=== PATIENT | female | born 1960 | race Caucasian/White ===

== ENCOUNTER 2016-06-29 07:46 | Outpatient (CLI) | payer OTHER | END 2016-06-29 07:47 | disposition home or self-care (01) | DX: Z00.00 Encounter for general adult medical examination without abnormal findings (principal); Z13.9 Encounter for screening, unspecified; Z79.899 Other long term (current) drug therapy ==

== ENCOUNTER 2016-07-19 14:32 | Outpatient (CLI) | payer OTHER ==
--- NOTE | 2016-07-20 09:46 | Mammography Report ---
DIGITAL BILATERAL SCREENING MAMMOGRAM: 07/19/2016 CLINICAL HISTORY: A 56-year-old female in for routine screening mammogram. The patient's family histo ry indicates an aunt at age 50 with breast cancer. The patient has bilateral breast implants. TECHNIQUE: Craniocaudad and oblique lateral views of each breast with Hologic profile digital mammogr aphy. Bilateral craniocaudad and oblique lateral Ronni views were done to complement the exam. COMPARISON: 02/09/2011, 10/22/2013. FINDINGS: Mildly heterogeneously dense breasts are noted bilaterally. Bilateral retropectoral silico ne breast prostheses are seen. No significant clusters of calcification are seen. No significant mass es are noted. No significant change is seen. IMPRESSION: THE BREAST APPEAR RADIOGRAPHICALLY BENIGN. BIRADS CATEGORY 1-NEGATIVE. RECOMMENDATION: ANNUAL BILATERAL SCREENING MAMMOGRAPHY. STANDARD QUALIFYING STATEMENTS 1. This examination was reviewed with the aid of Computer-Aided Detection (CAD). 2. A negative or benign imaging report should not delay biopsy if clinically suspicious findings are present. Consider surgical consultation if warranted. More than 5% of cancers are not identified by i mateo. 3. Dense breasts may obscure an underlying neoplasm. JOB #: [id number] EXT JOB #:[id number]
== END 2016-07-19 14:33 | disposition home or self-care (01) ==
LOC: DI 14:32
PROVIDERS: ATTEND Nurse Practitioner Primary Care
DX: Z12.31 Encounter for screening mammogram for malignant neoplasm of breast (principal); Z98.82 Breast implant status
CPT/HCPCS: 77067

== ENCOUNTER 2017-05-14 14:47 | Emergency (ER) | payer OTHER ==
--- NOTE | 2017-05-14 16:06 | ED Physician Documentation ---
History of Present Illness - Stated complaint Stated Complaint: NECK/SHOULDER PX - Chief complaint Chief Complaint: General - History obtained from History obtained from: Patient - History of Present Illness Timing: How many days ago (3) Pain level max: 5 Pain level now: 1 Improved by: rest Worsened by: movement - Additonal information Additional information: L sided neck pain and swelling for past several days. Denies any trauma. Has not taken anything for the pain. Has been drinking alcohol today Review of Systems Constitutional: denies: Fever, Chills Ears: denies: Ear pain Nose: denies: Rhinorrhea / runny nose, Congestion Cardiac: reports: Chest pain / pressure (states had mild chest pain a few days ago, lasted for a few minutes. 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 surgery - Present Medications Home Medications: Ambulatory Orders Medication Instructions Recorded Confirmed No Known Home Medications [No 05/14/17 05/14/17 Known Home Medications] Omeprazole 20 mg PO 05/14/17 Venlafaxine [Effexor] 37.5 mg PO BID 05/14/17 05/14/17 - Allergies Allergies/Adverse Reactions: Allergies Allergy/AdvReac Type Severity Reaction Status Date / Time meperidine [From Demerol] Allergy Hives Verified 05/14/17 14:57 PD ED PE NORMAL - Vitals Vital signs reviewed: Yes - General General: Alert and oriented X 3, No acute distress - HEENT HEENT: PERRL, Moist mucous membranes - Neck Neck: Supple, no meningeal sign, Other (L sided trapezial ridge TTP and swelling. also mild TTP over the L sternoclavicular joint. No skin changes. NVI.FROM of the neck, mild pain. Normal shoulder exam. ) - Cardiac Cardiac: RRR, Strong equal pulses - Respiratory Respiratory: No respiratory distress, Clear bilaterally - Abdomen Abdomen: Soft, Non tender, Non distended - Derm Derm: Warm and dry - Neuro Neuro: Alert and oriented X 3 - Psych Psych: Normal mood, Normal affect Results - Vitals Vitals: Vital Signs - 24 hr 05/14/17 05/14/17 14:53 18:28 Temperature 36.4 C L 36.6 C Heart Rate 86 72 Respiratory 16 14 Rate Blood Pressure 128/90 H 102/68 O2 Saturation 99 98 Oxygen O2 Source Room air - Labs Labs: Laboratory Tests 05/14/17 05/14/17 16:00 16:00 WBC 5.9 RBC 4.20 Hgb 13.9 Hct 42.0 MCV 100.0 H MCH 33.0 H MCHC 33.0 RDW 13.4 Plt Count 212 MPV 8.5 Neut # 1.9 Lymph # 2.8 [place] # 0.9 Eos # 0.1 Baso # 0.1 Absolute Nucleated RBC 0.00 Nucleated RBC % 0.0 Sodium 137 Potassium 3.8 Chloride 102 Carbon Dioxide 21 Anion Gap 14.0 H BUN 7 Creatinine 0.6 Estimated GFR (MDRD) 104 Glucose 124 H Calcium 8.8 Total Bilirubin 0.3 AST 43 H ALT 36 Alkaline Phosphatase 66 Total Protein 7.5 Albumin 3.9 Globulin 3.6 Albumin/Globulin Ratio 1.1 Lipase 19 L - Rads (name of study) CT neck Radiology: Prelim report reviewed, EMP read contemporaneously, See rad report ( There is mild asymmetry of the posterior cervical spaces with the left appearing to be larger than that of the right. There is increased fat density on the left. This could potentially be secondary to positioning on this scan as the left shoulder is elevated compared to the right. However, I cannot entirely exclude the possibility of an underlying lipoma within the left posterior cervical space. Recommend correlation. 2. There is slight asymmetry of the left sternoclavicular joint compared to the right which could reflect the presence of a small effusion. Recommend correlation. 3. There is no significant cervical adenopathy within the neck by size criteria. ) PD MEDICAL DECISION MAKING - ED course Complexity details: reviewed results, re-evaluated patient, considered differential, d/w patient, d/w family ED course: Patient is a 57-year-old female who presents to the emergency department left- sided neck swelling for the past few days. Unclear etiology. Possible muscle spasm? CT reveals possible lipoma? No evidence of malignancy. We will continue supportive care and follow-up with her PCP. Patient counseled regarding signs and symptoms for which I believe and urgent re-evaluation would be necessary. Patient with good understanding of and agreement to plan and is comfortable going home at this time This document was made in part using voice recognition software. While efforts are made to proofread this document, sound alike and grammatical errors may occur. Departure - Departure Disposition: 01 Home, Self Care Clinical Impression: Neck muscle strain Qualifiers: Encounter type: initial encounter Qualified Code(s): S16.1XXA - Strain of muscle, fascia and tendon at neck level, initial encounter Condition: Good Instructions: ED Sprain Strain Neck Follow-Up: Siomara Lopez ARNP [Primary Care Provider] - Within 1 week Comments: The cause of your symptoms is unclear today. You may have a lipoma that is causing the swelling. Please follow-up with your doctor for further care. Return if you worsen Discharge Date/Time: 05/14/17 19:07
[2017-05-14 16:09] LABS: BASOPHILS # (AUTO) 0.1 10^3/uL (0.0-0.1); EOSINOPHILS # (AUTO) 0.1 10^3/uL (0.0-0.7); EOSINOPHILS % (AUTO) 2.1 %; HGB - HEMOGLOBIN 13.9 g/dL (12.0-16.0); LYMPHOCYTES # (AUTO) 2.8 10^3/uL (1.5-3.5); LYMPHOCYTES % (AUTO) 48.6 %; MEAN PLATELET VOLUME 8.5 fL (7.9-10.8); MONOCYTES # (AUTO) 0.9 10^3/uL (0.0-1.0); MONOCYTES % (AUTO) 15.1 %; NEUTROPHILS # (AUTO) 1.9 10^3/uL (1.5-6.6); NEUTROPHILS % (AUTO) 33.2 %; PLT - PLATELET COUNT 212 10^3/uL (130-450); RED CELL DISTRIBUTION WIDTH 13.4 % (12.0-15.0); WHITE BLOOD COUNT 5.9 x10^3/uL (4.8-10.8)
[2017-05-14 16:17] LABS: ALBUMIN 3.9 g/dL (3.2-5.5); ALBUMIN/GLOBULIN RATIO 1.1 (1.0-2.2); BILIRUBIN,TOTAL 0.3 mg/dL (0.2-1.0); CALCIUM 8.8 mg/dL (8.5-10.3); CREATININE 0.6 mg/dL (0.4-1.0); TOTAL PROTEIN 7.5 g/dL (6.7-8.2)
[2017-05-14] MEDS ORDERED: IOPAMIDOL-300 100 ML VIAL ONE (17:19)
[2017-05-14] MEDS ORDERED: IOPAMIDOL-300 100 ML VIAL IVP ONE (17:57)
--- NOTE | 2017-05-14 18:25 | CT Preliminary Report ---
Exam: CT NECK SOFT TISSUE W/ Impression: 1. There is mild asymmetry of the posterior cervical spaces with the left appearing to be larger than that of the right. There is increased fat density on the left are in this could potentially be secon odnavon to positioning on this scan of the left shoulder is elevated compared to the right. However, I c annot entirely exclude the possibility of an underlying lipoma within the left posterior cervical spa ce. Recommend correlation. 2. There is slight asymmetry of the left sternoclavicular joint compared to the right which could ref lect the presence of a small effusion. Recommend correlation. 3. There is no significant cervical adenopathy within the neck size criteria. SITE ID: [id number]
[2017-05-14 18:29] VITALS: BP 102/68
--- NOTE | 2017-05-14 19:44 | CT Report ---
EXAM: CT SOFT TISSUE NECK WITH CONTRAST. EXAM DATE: 05/14/2017 05:54 PM. HISTORY: Left-sided neck swelling. Small lump on clavicle starting on which has progressed. Painful. COMPARISONS: None. TECHNIQUE: Routine soft tissue neck CT protocol. Reconstructions: Coronal and sagittal. IV contrast: 80 mL Isovue 300.. In accordance with CT protocol optimization, one or more of the following dose reduction techniques w ere utilized for this exam: automated exposure control, adjustment of mA and/or KV based on patient s ize, or use of iterative reconstructive technique. FINDINGS: There is subsegmental atelectasis demonstrated within the bilateral lung apices. There is straighteni ng of the normal cervical lordosis. There are multilevel moderate degenerative changes of the mid cervical spine. There is beam-hardening artifact from the patient's dental amalgam and or dental hardware obscuring p ortions of the oropharynx, nasopharynx, oral cavity, cake icer and packer and parotid spaces, tongue and tongue base. The bilateral mastoid air cells are normally aerated. There is a small mucous retention cyst in the left maxillary sinus. The remainder of the paranasal si nuses are normally aerated. There is normal enhancement within the deep venous sinuses. The imaged portions of the brain exhibit normal cerebral volume and ventricular size. The opening of the eustachian tubes are normally aerated. The torus tubarius are symmetric. The fossa of Rosenmuller are normally aerated bilaterally. The bilateral parapharyngeal spaces exhibit normal fat densities. The right and left parotid spaces enhance symmetrically. The palatine tonsils exhibit symmetric hyper trophy. There is no significant adenopathy in the level IA leanna chain. The extrinsic and the intrinsic muscles of the tongue exhibit symmetric densities. There is no significant adenopathy within the bilateral level IB leanna chains. The lingual tonsils ex hibit mild hypertrophy partially filling the vallecula. The free and fixed margins of the epiglottis are normal in appearance. The free and fixed margins of the epiglottis are normal in appearance. The preepiglottic space and pa raglottic spaces exhibit normal fat densities. The aryepiglottic folds and pyriform sinuses are symme tric. The false and true cords are normal in appearance. The arytenoid cartilage, cricoid cartilage, and the thyroid cartilages are normal in appearance. The subglottic space is normal. The bilateral thyroid lobes enhance symmetrically. There is a subtle suggestion of mild asymmetry of the joint space surrounding the left sternoclavicul ar joint. There is questionable slight distention on the left. This could reflect a mild effusion. Re commend correlation with the patient's clinical symptoms. There appears to be elevation of the left shoulder compared to the right. There is mild asymmetry in terms of the fat density within the left posterior cervical space compared to the right. This may be secondary to the differences in positioning. However, a small underlying lipoma is not excluded. There is no significant adenopathy within the deep cervical or the spinal accessory chains. The retro pharyngeal space exhibits normal fat densities. IMPRESSION: 1. There is mild asymmetry of the posterior cervical spaces with the left appearing to be larger than that of the right. There is increased fat density on the left. This could potentially be secondary t o positioning on this scan as the left shoulder is elevated compared to the right. However, I cannot entirely exclude the possibility of an underlying lipoma within the left posterior cervical space. Re commend correlation. 2. There is slight asymmetry of the left sternoclavicular joint compared to the right which could ref lect the presence of a small effusion. Recommend correlation. 3. There is no significant cervical adenopathy within the neck by size criteria. Referring Provider Line: [phone] SITE ID: [id number]
== END 2017-05-14 19:07 | disposition home or self-care (01) ==
LOC: ED 14:47
DX: S16.1XXA Strain of muscle, fascia and tendon at neck level, initial encounter (principal); X58.XXXA Exposure to other specified factors, initial encounter; R22.1 Localized swelling, mass and lump, neck
CPT/HCPCS: 36415; 70491; 80053; 83690; 85025; 93005; 99283; Q9967

== ENCOUNTER 2017-05-18 13:45 | Outpatient (CLI) | payer OTHER ==
[2017-05-18 15:37] LABS: FOLATE 8.28 ng/mL (5.90 - >24.8)
[2017-05-18 16:11] LABS: RHEUMATOID FACTOR NEGATIVE (Negative)
[2017-05-22 13:26] LABS: ANA SCREEN POSITIVE (NEGATIVE)
== END 2017-05-18 13:46 | disposition home or self-care (01) ==
LOC: LAB 13:45
PROVIDERS: ATTEND Nurse Practitioner Primary Care
DX: D75.89 Other specified diseases of blood and blood-forming organs (principal); M25.512 Pain in left shoulder; Z79.899 Other long term (current) drug therapy
CPT/HCPCS: 81599; 82607; 82746; 85651; 86038; 86140; 86430; 86812

== ENCOUNTER 2017-07-19 09:04 | Outpatient (CLI) | payer OTHER ==
[2017-07-19 09:24] LABS: BASOPHILS % (AUTO) 0.8 %; EOSINOPHILS # (AUTO) 0.1 10^3/uL (0.0-0.7); HGB - HEMOGLOBIN 14.5 g/dL (12.0-16.0); LYMPHOCYTES # (AUTO) 1.7 10^3/uL (1.5-3.5); MEAN CORPUSCULAR HEMOGLOBIN 34.2 pg (27.0-31.0); MEAN CORPUSCULAR HGB CONC 33.9 g/dL (32.0-36.0); MEAN PLATELET VOLUME 8.6 fL (7.9-10.8); MONOCYTES # (AUTO) 0.8 10^3/uL (0.0-1.0); MONOCYTES % (AUTO) 16.8 %; NEUTROPHILS # (AUTO) 2.3 10^3/uL (1.5-6.6); NEUTROPHILS % (AUTO) 45.4 %; PLT - PLATELET COUNT 176 10^3/uL (130-450); RED BLOOD COUNT 4.24 10^6/uL (4.20-5.40); RED CELL DISTRIBUTION WIDTH 13.3 % (12.0-15.0)
[2017-07-19 09:42] LABS: ALBUMIN 3.9 g/dL (3.2-5.5); ALBUMIN/GLOBULIN RATIO 1.1 (1.0-2.2); ALKALINE PHOSPHATASE 65 IU/L (42-121); ALT ALANINE AMINOTRANSFERASE 55 IU/L (10-60); AST ASPARTATE AMINOTRANSFERASE 62 IU/L (10-42); BUN - BLOOD UREA NITROGEN 8 mg/dL (6-20); CALCIUM 8.8 mg/dL (8.5-10.3); CARBON DIOXIDE - CO2 28 mmol/L (21-32); CHLORIDE 101 mmol/L (101-111); CHOL/HDL RATIO 3.5 (<4.4); CHOLESTEROL 243 mg/dL; CREATININE 0.6 mg/dL (0.4-1.0); GFR - MDRD 104 (>89); GLUCOSE 94 mg/dL (70-100); HDL CHOLESTEROL 69 mg/dL; LDL CHOLESTEROL,CALCULATED 142 mg/dL; LDL/HDL RATIO 2.1 (<4.4); SODIUM 139 mmol/L (135-145); TOTAL PROTEIN 7.3 g/dL (6.7-8.2); VLDL CHOLESTEROL 32 mg/dL
== END 2017-07-19 09:05 | disposition home or self-care (01) ==
LOC: LAB 09:04
PROVIDERS: ATTEND Nurse Practitioner Primary Care
DX: E55.9 Vitamin D deficiency, unspecified (principal); D75.89 Other specified diseases of blood and blood-forming organs; E03.9 Hypothyroidism, unspecified; E78.5 Hyperlipidemia, unspecified; K21.9 Gastro-esophageal reflux disease without esophagitis; Z79.899 Other long term (current) drug therapy
CPT/HCPCS: 36415; 80053; 80061; 82306; 83721; 84443; 85025

== ENCOUNTER 2017-12-29 01:39 | Emergency (ER) | payer OTHER ==
[2017-12-29] MEDS ORDERED: SODIUM CHLORIDE 0.9% 1,000 ML IV ONE (01:45)
[2017-12-29] MEDS ORDERED: ADENOSINE 6 MG/2 ML VIAL IVP STA (01:46)
--- NOTE | 2017-12-29 01:55 | ED Physician Documentation ---
PD HPI CHEST PAIN - Stated complaint Stated Complaint: CHEST PX - Chief complaint Chief Complaint: Cardiac - History obtained from History obtained from: Patient, Family - History of Present Illness Timing - onset: Today Timing - onset during: Rest Timing - duration: Minutes Timing - details: Abrupt onset, Still present Quality: Pressure, Tightness, Sharp Location: Substernal, Left chest Radiation: Jaw, Neck Improved by: Rest Worsened by: Exertion Associated symptoms: Shortness of air Similar symptoms before: Diagnosis (SVT) Recently seen: Not recently seen - Additional information Additional information: 57-year-old female was well previously and she admits to having some wine t onight and smoking a cigarette and this evening she was in bed and developed a rapid heart rate. She states that she can feel pressure in her chest and she has had something similar to this previously which resolved with a Valsalva maneuver. She had not sought care at that time. She has persistence of symptoms that did not resolve with Valsalva and she is here in the emergency department for evaluation. She does have pain in her chest it is radiating into her neck and jaw. 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 Cardiovascular: Vascular surgery - Present Medications Home Medications: Ambulatory Orders Medication Instructions Recorded Confirmed No Known Home Medications 05/14/17 05/14/17 RX: Omeprazole 20 mg PO 05/14/17 Venlafaxine [Effexor] 37.5 mg PO BID 05/14/17 05/14/17 - Allergies Allergies/Adverse Reactions: Allergies Allergy/AdvReac Type Severity Reaction Status Date / Time meperidine [From Demerol] Allergy Hives Verified 05/14/17 14:57 - Social History Does the pt smoke?: No Smoking Status: Never smoker Does the pt drink ETOH?: Yes Does the pt have substance abuse?: No PD ED PE NORMAL - Vitals Vital signs reviewed: Yes (tachy and hypertensive ) - General General: Alert and oriented X 3, Well developed/nourished, Other (appears anxious ) - HEENT HEENT: Atraumatic, PERRL, EOMI, Other (injection of the sclera on the right ) - Neck Neck: Supple, no meningeal sign, No bony TTP - Cardiac Cardiac: No murmur, Other (tachy greater than 200) - Respiratory Respiratory: No respiratory distress, Clear bilaterally - Abdomen Abdomen: Soft, Non tender - Back Back: No CVA TTP, No spinal TTP - Derm Derm: Normal color, Warm and dry, No rash - Extremities Extremities: No deformity, No edema - Neuro Neuro: Alert and oriented X 3, director cost 2-12 intact, No motor deficit, No sensory deficit, Normal speech Eye Opening: Spontaneous Motor: Obeys Commands Verbal: Oriented GCS Score: 15 - Psych Psych: Normal mood, Normal affect Results - Vitals Vitals: Vital Signs - 24 hr 12/29/17 12/29/17 12/29/17 01:43 01:49 01:51 Temperature 35.9 C L Heart Rate 222 H 224 H 111 H Respiratory 19 14 Rate Blood Pressure 124/108 H 147/98 H O2 Saturation 100 98 12/29/17 12/29/17 12/29/17 01:55 02:23 03:33 Temperature Heart Rate 87 87 84 Respiratory 24 20 14 Rate Blood Pressure 116/89 H 125/84 H 104/73 O2 Saturation 97 98 98 Oxygen O2 Source Room air - EKG (time done) 0147 Rate: Rate (enter#) (214) Rhythm: SVT [place]: LAD Ischemia: ST elevation c/w ischemia (V1 and V2), ST depression (lateral rate dependant ), Q waves, Other Compare to prior EKG: Changed from prior EKG (SPT 05-14-17 rhythm has changed to SVT and ST-T abnormalities are presnent. ) Computer interpretation: Agree with computer 0154 Rate: Rate (enter#) (91) Rhythm: NSR, LAE Ischemia: Q waves Compare to prior EKG: Changed from prior EKG (SPT minutes ago the rhythm has changed to normal sinus and the ST-T abnormalities have resolved. ) Computer interpretation: Agree with computer - Labs Labs: Laboratory Tests 12/29/17 12/29/17 12/29/17 01:45 01:45 01:45 WBC 10.5 RBC 4.33 Hgb 14.9 Hct 43.7 MCV 101.0 H MCH 34.3 H MCHC 34.0 RDW 13.1 Plt Count 225 MPV 9.5 Neut # (Auto) 4.1 Lymph # (Auto) 4.7 H [place] # (Auto) 1.3 H Eos # (Auto) 0.3 Baso # (Auto) 0.1 Absolute Nucleated RBC 0.01 Nucleated RBC % 0.1 Sodium 136 Potassium 3.6 Chloride 103 Carbon Dioxide 22 Anion Gap 11.0 BUN 19 Creatinine 0.7 Estimated GFR (MDRD) 87 L Glucose 111 H Calcium 9.0 Total Bilirubin 0.8 AST 69 H ALT 48 Alkaline Phosphatase 63 Troponin I < 0.04 Total Protein 7.4 Albumin 4.3 Globulin 3.1 Albumin/Globulin Ratio 1.4 Lipase 37 TSH Urine Color Urine Clarity Urine pH Ur Specific [place] Urine Protein Urine Glucose (UA) Urine Ketones Urine Occult Blood Urine Nitrite Urine Bilirubin Urine Urobilinogen Ur Leukocyte Esterase Ur Microscopic Review Urine Culture Comments Urine Opiates Screen Ur Oxycodone Screen Urine Methadone Screen Ur Propoxyphene Screen Ur Barbiturates Screen Ur Tricyclics Screen Ur Phencyclidine Scrn Ur Amphetamine Screen U Methamphetamines Scrn U Benzodiazepines Scrn Urine Cocaine Screen U Cannabinoids Screen Ethyl Alcohol 116.0 12/29/17 12/29/17 12/29/17 01:45 02:49 02:49 WBC RBC Hgb Hct MCV MCH MCHC RDW Plt Count MPV Neut # (Auto) Lymph # (Auto) [place] # (Auto) Eos # (Auto) Baso # (Auto) Absolute Nucleated RBC Nucleated RBC % Sodium Potassium Chloride Carbon Dioxide Anion Gap BUN Creatinine Estimated GFR (MDRD) Glucose Calcium Total Bilirubin AST ALT Alkaline Phosphatase Troponin I Total Protein Albumin Globulin Albumin/Globulin Ratio Lipase TSH 6.97 H Urine Color YELLOW Urine Clarity CLEAR Urine pH 6.0 Ur Specific [place] 1.020 Urine Protein NEGATIVE Urine Glucose (UA) NEGATIVE Urine Ketones TRACE Urine Occult Blood NEGATIVE Urine Nitrite NEGATIVE Urine Bilirubin NEGATIVE Urine Urobilinogen 0.2 (NORMAL) Ur Leukocyte Esterase NEGATIVE Ur Microscopic Review NOT INDICATED Urine Culture Comments NOT INDICATED Urine Opiates Screen NEGATIVE Ur Oxycodone Screen NEGATIVE Urine Methadone Screen NEGATIVE Ur Propoxyphene Screen NEGATIVE Ur Barbiturates Screen NEGATIVE Ur Tricyclics Screen NEGATIVE Ur Phencyclidine Scrn NEGATIVE Ur Amphetamine Screen NEGATIVE U Methamphetamines Scrn NEGATIVE U Benzodiazepines Scrn NEGATIVE Urine Cocaine Screen NEGATIVE U Cannabinoids Screen NEGATIVE Ethyl Alcohol PD MEDICAL DECISION MAKING - ED course Complexity details: reviewed old records, reviewed results, re-evaluated patient, considered differential, d/w patient, d/w family ED course: Previously well 57-year-old female has the acute onset of SVT this evening with a very high rate of 220. She is anxious with this and she has prompt resolution of her symptoms with administration of 6 mg of adenosine intravenously. She returns to a normal sinus rhythm and remainder of her workup is unremarkable. She has had workup to include stress echo about 4 years ago. She will need out patient follow up. This was a dramatic episode with a very high heart rate that she tolerated for almost an hour. Departure - Departure Disposition: 01 Home, Self Care Clinical Impression: SVT (supraventricular tachycardia) Instructions: ED Tachycardia Pat PSVT Follow-Up: Iriwn Griffin MD [Provider Admit Priv/Credential] - Discharge Date/Time: 12/29/17 03:40
[2017-12-29 02:00] LABS: BASOPHILS # (AUTO) 0.1 10^3/uL (0.0-0.1); BASOPHILS % (AUTO) 0.9 %; EOSINOPHILS # (AUTO) 0.3 10^3/uL (0.0-0.7); EOSINOPHILS % (AUTO) 2.8 %; HGB - HEMOGLOBIN 14.9 g/dL (12.0-16.0); LYMPHOCYTES # (AUTO) 4.7 10^3/uL (1.5-3.5); LYMPHOCYTES % (AUTO) 44.9 %; MEAN CORPUSCULAR HEMOGLOBIN 34.3 pg (27.0-31.0); MEAN PLATELET VOLUME 9.5 fL (7.9-10.8); MONOCYTES # (AUTO) 1.3 10^3/uL (0.0-1.0); MONOCYTES % (AUTO) 12.3 %; NEUTROPHILS # (AUTO) 4.1 10^3/uL (1.5-6.6); NEUTROPHILS % (AUTO) 39.1 %; PLT - PLATELET COUNT 225 10^3/uL (130-450); RED BLOOD COUNT 4.33 10^6/uL (4.20-5.40); RED CELL DISTRIBUTION WIDTH 13.1 % (12.0-15.0); WHITE BLOOD COUNT 10.5 x10^3/uL (4.8-10.8)
[2017-12-29 02:10] LABS: ALBUMIN 4.3 g/dL (3.2-5.5); ALBUMIN/GLOBULIN RATIO 1.4 (1.0-2.2); BILIRUBIN,TOTAL 0.8 mg/dL (0.2-1.0); CREATININE 0.7 mg/dL (0.4-1.0); TOTAL PROTEIN 7.4 g/dL (6.7-8.2)
[2017-12-29 02:55] LABS: MUDS CUTOFF CONCENTRATIONS CUTOFF CONC BELOW:
[2017-12-29 03:02] LABS: BILIRUBIN,URINE NEGATIVE (NEGATIVE); GLUCOSE, URINE (UA) NEGATIVE (NEGATIVE); KETONES,URINE (UA) TRACE mg/dL (NEGATIVE); LEUKOCYTE ESTERASE, URINE NEGATIVE (NEGATIVE); NITRITE,URINE NEGATIVE (NEGATIVE); OCCULT BLOOD,URINE NEGATIVE (NEGATIVE); PROTEIN,URINE NEGATIVE (NEGATIVE); UROBILINOGEN,URINE 0.2 (NORMAL) E.U./dL (NORMAL)
[2017-12-29 03:05] LABS: CLARITY,URINE CLEAR (CLEAR)
[2017-12-29 03:12] LABS: AMPHETAMINE SCREEN,URINE NEGATIVE (NEGATIVE); BENZODIAZEPINES SCREEN, URINE NEGATIVE (NEGATIVE); COCAINE SCREEN URINE NEGATIVE (NEGATIVE); METHADONE SCREEN, URINE NEGATIVE (NEGATIVE); METHAMPHETAMINES SCREEN, URINE NEGATIVE (NEGATIVE); OPIATE SCREEN, URINE NEGATIVE (NEGATIVE); OXYCODONE SCREEN, URINE NEGATIVE (NEGATIVE); PROPOXYPHENE SCREEN, URINE NEGATIVE (NEGATIVE); TRICYCLIC ANTIDEPRESSANT,URINE NEGATIVE (NEGATIVE)
[2017-12-29 03:34] VITALS: BP 104/73
== END 2017-12-29 03:40 | disposition home or self-care (01) ==
LOC: ED 01:39
DX: I47.1 Supraventricular tachycardia (principal); F41.9 Anxiety disorder, unspecified
CPT/HCPCS: 36415; 80053; 80306; 80320; 81003; 83690; 84443; 84484; 85025; 93005; 96374; 99284; 99285; J0153; 81001; 87086

== ENCOUNTER 2018-12-21 14:50 | Outpatient (CLI) | payer BC, OTHER ==
--- NOTE | 2018-12-24 11:40 | Mammography Report ---
Reason: ROUTINE MAMMO Procedure Date: 12/21/2018 Accession Number: [id number] / [id number] Procedure: LINDA - Screening Mammo Impl w/Ted CPT Code: FULL RESULT: EXAM: Screening Mammo Impl w/Ted DATE: 12/21/2018 3:31 PM CLINICAL HISTORY: Routine screening, breast implants. TECHNIQUE: (B) - Bilateral CC and MLO views were obtained. COMPARISON: 07/19/2016, 10/22/2013, 02/09/2011 PARENCHYMAL PATTERN: (D) - The breasts demonstrate heterogeneously dense fibroglandular parenchyma bilaterally. FINDINGS: No significant interval change..There are no suspicious masses, calcifications, or areas of distortion. Bilateral implants as before. There is a focal area of tissue asymmetry in the anterior upper outer left breast which is been previously present but not evaluated. IMPRESSION: Incomplete examination. BI-RADS category 0. Needs additional evaluation left breast by ultrasound. Negative right breast. RECOMMENDATION: (ADDUS) - Targeted ultrasound recommended. Left breast BI-RADS CATEGORY: (0) - Incomplete Examination - need additional evaluation. STANDARD QUALIFYING STATEMENTS: 1. This examination was not reviewed with the aid of Computer-Aided Detection (CAD). 2. A negative or benign imaging report should not preclude biopsy if clinically suspicious findings are present. 3. Dense breasts may obscure an underlying neoplasm. 4. This examination was reviewed with the aid of 3D breast imaging (tomosynthesis).
== END 2018-12-21 14:51 | disposition home or self-care (01) ==
LOC: DI 14:50
DX: Z12.31 Encounter for screening mammogram for malignant neoplasm of breast (principal); Z98.82 Breast implant status
CPT/HCPCS: 77063; 77067

== ENCOUNTER 2019-01-04 15:12 | Outpatient (CLI) | payer BC ==
--- NOTE | 2019-01-04 16:19 | Ultrasound Report ---
Reason: ABN MAMMO - LT SPEC VIEWS US Procedure Date: 01/04/2019 Accession Number: [id number] / [id number] Procedure: US - Breast Unilateral Limited CPT Code: Final Report FULL RESULT: EXAM: Breast Unilateral Limited DATE: 01/04/2019 4:04 PM CLINICAL HISTORY: ABN MAMMO - LT SPEC VIEWS US COMPARISON: Screening mammogram 12/21/2018 through 02/09/2011. TECHNIQUE: Targeted ultrasound was performed of the left breast in the area of clinical concern at 3 o'clock and 4 cm distance from the nipple. Color Doppler was employed as appropriate. FINDINGS: A wider than tall 0.4 x 0.1 cm simple appearing cyst with well defined borders, anechoic lumen and increased through transmission is identified corresponding and shape but not confidently in size to the mammographic changing which appears to demonstrate long-term mammographic stability. No suspicious mass is identified. IMPRESSION: Benign findings RECOMMENDATION: Recommend routine annual Screening mammography unless otherwise clinically indicated. BIRADS CATEGORY 2: Benign findings RADIA
== END 2019-01-04 15:13 | disposition home or self-care (01) ==
LOC: DI 15:12
PROVIDERS: ATTEND Nurse Practitioner
DX: R92.8 Other abnormal and inconclusive findings on diagnostic imaging of breast (principal)
CPT/HCPCS: 76642

== ENCOUNTER 2019-09-17 13:22 | Outpatient (CLI) | payer BC ==
--- NOTE | 2019-09-17 13:59 | SLEEP CARE CONSULTATION ---
Information from patient questionnaire entered by Qi Joe. I have reviewed and concur with the information entered by Qi Joe. This document represents the service I personally performed and the decisions made by me, Michelet Colon MD, [facility]. History of Present Illness Service Date and Time: 09/17/2019 1322 Reason for Visit: New patient Chief Complaint: reports: Snoring, Observed pauses in breathing Duration of Symptoms: 2-4 YEARS Usual bedtime: 2200 Time it takes to fall asleep: erratic Snores at night: Yes Observed to quit breathing while asleep: Yes Sleeps alone due to snoring: No Number of times waking at night: 2-3 Reasons for waking at night: reports: Gasping for air, Bathroom Toss, Turn, or Twitch while sleeping: Yes Recalls having dreams: Yes Usually gets out of bed at: 0700 Feels refreshed in the morning: No Morning headache: No Sleepy or fatigued during the day: Yes Ever fallen asleep while driving: No Takes day naps: Yes Dreams during day naps: No Prior sleep studies: No Additional HPI information: I had the pleasure of seeing Ms. Georges today regarding the possibility of her having a sleep disorder. As you know, she is a 59 year old lady who complains of loud snore, observed apneas, frequent awakenings, and persistent fatigue. She has woken up because of her own snore. She is very familiar with the sleep- disordered breathing because her has obstructive sleep apnea-hypopnea and uses a CPAP. 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 Patient is and lives in [place]. Have you smoked in the past 12 months: Yes Cigarettes per day (20/pack): 2 Years of smokin Quit date: 2018 Smoking Pack Years: 2.0 Alcohol use: Yes Alcohol amount and frequency: 2 drinks nightly Caffeine use: Yes Caffeine amount and frequency: 2-3 Family History Family history of sleep disordered breathing: Yes Family Hx Sleep Apnea: Father: Snoring Allergies and Home Medications Drug allergies reviewed: Yes Home medication list reviewed: Yes (propanolol, Prilosec, melatonin) Review of Systems Weight gain over past 5 years: 20 Cardiovascular: reports: palpitations, irregular heart rate or pulse Gastrointestinal: reports: heartburn Urinary: reports: frequency, urgency Neurological: denies: headaches, seizure, head trauma, disorientation, speech dysfunction, gait or balance problems, fainting or unconsciousness, other Psychiatric: reports: anxiety Ear/Nose/Throat: reports: wisdom teeth removed Endocrine: reports: thyroid disease, too hot or cold, increased urination Musculoskeletal: reports: joint pain, back pain Immunologic: reports: allergies to food or environment Physical Exam Vital signs obtained and entered by: Detailed physical exam was not performed to comply with the COVID-19 precau Height: 5 ft 0.5 in Weight: 155 lb Body Mass Index: 29.7 BMI Classification: Overweight Impression and Plan IMPRESSION: 1. Obstructive Sleep Apnea-Hypopnea Syndrome, as suggested by history of loud and irregular snoring, observed cessation of breath while asleep, frequent awakenings during the night, unrefreshed sleep, nocturnal choking, and persistent fatigue. Narrow oropharynx and obesity are common predisposing factors for obstructive sleep apnea-hypopnea syndrome. Pathophysiology of sleep-disordered breathing was discussed. I recommend proceeding to polysomnography to confirm the diagnosis and to assess severity. If she has significant sleep disordered breathing, a manual CPAP titration study will also be performed to find the optimal treatment pressure. I informed the patient of what the sleep studies involve and after some discussion, she agreed to proceed. Plan: 1. Schedule an in-laboratory polysomnography, home sleep apnea test (HSAT) if it is the only test approved by her insurance. 2. Avoid long distance driving or when feeling sleepy. 3. Avoid alcohol, sedative and muscle relaxant around bedtime. 4. Attempt to lose weight. 5. Return in 1 to 2 weeks after the study to discuss results and initiate therapy. Visit Type: In Office Time Spent with Patient (minutes): 15 Provider Statement: I spent 100% of the Face to Face Visit with the patient with greater than 50% spent counseling the patient and coordination of care.
== END 2019-09-17 13:23 | disposition home or self-care (01) ==
LOC: SC 13:22
PROVIDERS: ATTEND Internal Medicine Pulmonary Disease
DX: R53.83 Other fatigue (principal); G47.8 Other sleep disorders; R06.83 Snoring; R06.81 Apnea, not elsewhere classified; E66.3 Overweight; Z68.29 Body mass index [BMI] 29.0-29.9, adult
CPT/HCPCS: 99203; 99212

== ENCOUNTER 2019-10-21 20:29 | Outpatient (CLI) | payer BC | END 2019-10-21 20:30 | disposition home or self-care (01) | LOC: SC 20:29 | PROVIDERS: ATTEND Internal Medicine Pulmonary Disease | DX: G47.33 Obstructive sleep apnea (adult) (pediatric) (principal); G47.61 Periodic limb movement disorder; E66.3 Overweight; Z68.29 Body mass index [BMI] 29.0-29.9, adult | CPT/HCPCS: 95810 ==

== ENCOUNTER 2019-11-05 08:10 | Outpatient (CLI) | payer BC ==
--- NOTE | 2019-11-05 08:43 | SLEEP CARE CONSULTATION ---
Information from patient questionnaire entered by Qi Joe. I have reviewed and concur with the information entered by Qi Joe. This document represents the service I personally performed and the decisions made by me, Kandi Avila ARNP. History of Present Illness Service Date and Time: 11/05/2019 0810 Initial [place] Sleepiness Scale score: 6 Additional HPI information: CRISTIANO VAUGHAN returns for follow up and results of the recently performed p olysomnography. She was found to have mild sleep apnea with an average AHI of 12.5 and a alyce of 77%. She was also found to have severe periodic leg movement. I explained the pathophysiology behind obstructive sleep apnea. We then spent quite a bit of time discussing different treatment options. For mild obstructive sleep apnea, surgery and oral appliance are alternatives to nasal CPAP therapy but in moderate or severe cases, nasal CPAP is the most effective and reliable treatment. Because apnea is primarily in supine position, then positional management therapy could be effective. Methods discussed such as positioning with pillows, using a T-shirt with tennis balls in the back, and shown commercial products that have a pillow format on back to prevent supine sleep. I reviewed the impact of weight changes on sleep apnea and strongly recommended losing weight. After some discussion, the patient opted to go with the nasal CPAP therapy. Nasal autoCPAP set at 4-15 cmH20 will be ordered with rationale explained. A manual titration study will be ordered if unable to find optimal pressure with office adjustments. I explained how CPAP machine works with sample devices Respironics Dreamstation and ResSTEERads [id number] and what to expect when using the machine. Using CPAP every night in order to get used to it was emphasized. Patient advised to put CPAP mask on before getting into bed so as not to fall asleep without CPAP. To assist acclimation to CPAP use, it could also be used for a short time during day while reading or watching TV. The patient was instructed to call the CPAP supplier to discuss any mechanical problem that may occur. If the mask given is uncomfortable or is difficult to keep on through the night even with adjustment, contact the CPAP supplier as many will replace with another mask style if notified before 30 days. If snoring or perceives is not getting enough air or too much air from the machine, notify this office. AAS patient education PAP tips reviewed and given to patient. Patient counseled not drink alcohol less than 4 hours before bedtime as it can increase snoring and apnea. Patient was cautioned about risks of drowsy driving until sleepiness symptoms resolve. Sleep Study - Results Type of Sleep Study: Polysomnography Year and Where: 09/2019 [facility] Polysomnography/Home Sleep Study results: IMPRESSION: The quality of the study is good. The patient had normal sleep efficiency. Despite moderate sleep fragmentation, the sleep architecture was normal as well. Respiratory monitoring showed mild obstructive sleep apnea-hypopnea (AHI = 12.5) associated with frequent arousals, oxyhemoglobin desaturation and moderate hypoxia (alyce oxygen saturation of 77%). Baseline oxygen saturation was normal. The respiratory events occurred mainly during supine sleep (supine AHI = 31.2; non-supine = 7.60). Snore was loud in intensity. There was severe periodic leg movement of sleep contributing to the sleep fragmentation. Cardiac rhythm was normal sinus rhythm without significant arrhythmia. No abnormal behavior (parasomnia) observed during the night. Allergies and Home Medications Drug allergies reviewed: Yes (meperidine) Home medication list reviewed: Yes (losartan, propanalol) Review of Systems Review of systems same as previous: Yes (no changes) Physical Exam Heart Rate: 58 O2 Saturation: 99 Height: 5 ft 0.5 in Weight: 157 lb Body Mass Index: 30.1 BMI Classification: Obese Impression and Plan 1. Obstructive Sleep Apnea-Hypopnea Syndrome, mild, with lowest oxygen saturation of 77%. Obviously this is the cause of the patients symptoms of unrefreshed sleep, and excessive daytime sleepiness. Positive pressure therapy could benefit her anxiety and GERD. As mentioned above, the patient will be started on nasal autoCPAP therapy with pressure set at 4-15 cmH2O. A manual titration study will be completed if unable to find optimal treatment pressure with office adjustments. Compliance guidelines also reviewed. A copy of compliance guidelines will be given for reference at check out. Because the apnea is more severe supine, I instructed to avoid sleeping supine using pillow positioning until able to start CPAP use. 2. Periodic limb movement, severe, that did fragment patients sleep. Periodic limb movement of sleep (PLMS) is characterized by episodes of repetitive limb movements that occur during sleep and usually involve the lower limbs. The etiology is unknown but can be associated with restless leg syndrome (RLS), neuropathy, spinal cord diseases, kidney disease, rheumatological disorders, narcolepsy, obstructive sleep apnea, and REM sleep behavior disorder. Other factors that can increase PLMS and/or RLS are heredity and iron deficiency as reflected by a low serum ferritin level below 50 to 75mcg / L. Several medications can precipitate or aggravate PLMS such as selective serotonin re- uptake inhibitor antidepressants, tricyclic antidepressants, lithium, and dopamine receptor antagonists with the exception of bupropion. Caffeine can also aggravate PLMS and should be avoided. Sleep hygiene methods can also improve sleep as well as lifestyle changes such as regular exercise. Patient was advised that no treatment is needed at this time. If symptoms increase, then further evaluation is indicated. * Nasal auto CPAP therapy, pressure at 4-15 cm H2O. * Attempt to lose weight. * Avoid alcohol consumption near bedtime. * Avoid supine sleep until using CPAP. * The patient is again cautioned about driving until sleepiness completely resolves. * Return one month after CPAP obtained. I will assess response to therapy and compliance at that time. Visit Type: In Office Time Spent with Patient (minutes): 19 Provider Statement: I spent 100% of the Face to Face Visit with the patient with greater than 50% spent counseling the patient and coordination of care.
== END 2019-11-05 08:11 | disposition home or self-care (01) ==
LOC: SC 08:10
PROVIDERS: ATTEND Nurse Practitioner Family
DX: G47.33 Obstructive sleep apnea (adult) (pediatric) (principal); G47.61 Periodic limb movement disorder; E66.9 Obesity, unspecified; Z68.30 Body mass index [BMI] 30.0-30.9, adult
CPT/HCPCS: 99212; 99213

== ENCOUNTER 2019-12-27 09:39 | Outpatient (CLI) | payer BC ==
--- NOTE | 2019-12-27 10:08 | SLEEP CARE CONSULTATION ---
Information from patient questionnaire entered by Pamela Salamanca. I have reviewed and concur with the information entered by Pamela Salamanca. This document represents the service I personally performed and the decisions made by me, Kandi Avila ARNP. History of Present Illness Service Date and Time: 12/27/2019 09 Previous diagnosis: Mild, Obstructive Sleep Apnea-Hypopnea Syndrome AHI: 12.5 (in 2019) Reason for follow up: first compliance Equipment type: CPAP Equipment obtained from: Other ([facility], getting supplies as needed) Mask style: Nasal Mask brand: Respironics Backup mask available: Yes (other mask) Last cushion change: 1 week ago Prior sleep studies: Yes Year and Where: 2019 - [facility] Sleep HPI additional information: CRISTIANO VAUGHAN was diagnosed to have mild, AHI 12.5, obstructive sleep apnea- hypopnea syndrome and returned today for CPAP therapy first compliance follow- up. CPAP Compliance Data - Data Reviewed with Patient Average duration of nightly device use: 5.5 Compliance rate %: 76.7 Current pressure setting (cmH2O): 4-15 Humidity settin Heated hose settin Average residual AHI: 4.8 Average large leak: 4 min 44 sec Subjective Patient concerns: reports: other (just getting used to wearing the mask). denies: aerophagia, mask discomfort, air blowing in eyes, mask leak noise, condensation in mask/hose, nasal congestion, dry mouth, nose, throat, epistaxis Observed to snore while using device: No Current pressure setting perceived as: comfortable (sometimes to little to low at start of night, a couple breaths helps) On therapy, patient: reports: sleeping better, awakening more refreshed, being more awake and alert during the day, more rested overall. denies: drowsiness while driving Initial [place] Sleepiness Scale score: 6 (in 2020) Current [place] Sleepiness Scale score: 6 Allergies and Home Medications Drug allergies reviewed: Yes (meperidine) Home medication list reviewed: Yes (Losartan) Review of Systems Review of systems same as previous: Yes (no changes) Physical Exam Heart Rate: 61 O2 Saturation: 100 Height: 5 ft 0.5 in Weight: 157 lb Body Mass Index: 30.1 BMI Classification: Obese Impression and Plan 1. Obstructive Sleep Apnea-Hypopnea Syndrome, mild, with fair treatment compliance and fair apnea control. On CPAP therapy, the patient has better sleep quality and is more rested overall. She is doing well. She states she is sometimes waking up with the mask off, but she replaces it and is able to sleep. She sometimes feels the pressure is a little low at the beginning of the night but taking a couple of deep breaths seem to help. I will increase her pressure to 8-12 cm H2O and have her follow up in the office in 1-2 months to evaluate her progress. Patient's apnea severity and rationale for treatment to reduce apnea, improve sleep quality and reduce cardiovascular and cerebrovascular events was reviewed. I also reviewed the benefit of consistent device use of CPAP for her gastric reflux andanxiety. * Changeauto CPAP pressure to 8-12 cmH2O * Notify me if snoring with mask or feeling that the pressure is too much or too little * Attempt to lose weight * Call this office if any problems using CPAP * Return for follow up in 1-2 months, or sooner if concerns arise Time Spent with Patient (minutes): 19
== END 2019-12-27 09:40 | disposition home or self-care (01) ==
LOC: SC 09:39
PROVIDERS: ATTEND Nurse Practitioner Family
DX: G47.33 Obstructive sleep apnea (adult) (pediatric) (principal); E66.9 Obesity, unspecified; Z68.30 Body mass index [BMI] 30.0-30.9, adult
CPT/HCPCS: 99212

== ENCOUNTER 2020-01-20 08:58 | Outpatient (CLI) | payer BC ==
[2020-01-20 11:37] LABS: BASOPHILS # (AUTO) 0.1 10^3/uL (0.0-0.1); BASOPHILS % (AUTO) 0.9 %; EOSINOPHILS # (AUTO) 0.2 10^3/uL (0.0-0.7); EOSINOPHILS % (AUTO) 2.6 %; HGB - HEMOGLOBIN 12.6 g/dL (12.0-16.0); LYMPHOCYTES # (AUTO) 1.6 10^3/uL (1.5-3.5); LYMPHOCYTES % (AUTO) 24.9 %; MEAN CORPUSCULAR HEMOGLOBIN 34.2 pg (27.0-31.0); MEAN CORPUSCULAR HGB CONC 32.4 g/dL (32.0-36.0); MEAN CORPUSCULAR VOLUME 105.7 fL (81.0-99.0); MONOCYTES # (AUTO) 1.2 10^3/uL (0.0-1.0); NEUTROPHILS # (AUTO) 3.4 10^3/uL (1.5-6.6); NEUTROPHILS % (AUTO) 52.3 %; PLT - PLATELET COUNT 211 10^3/uL (130-450); RED BLOOD COUNT 3.68 10^6/uL (4.20-5.40); RED CELL DISTRIBUTION WIDTH 12.2 % (12.0-15.0); WHITE BLOOD COUNT 6.4 x10^3/uL (4.8-10.8)
[2020-01-20 12:23] LABS: THYROID STIMULATING HORMONE 5.21 uIU/mL (0.34-5.60)
[2020-01-20 12:25] LABS: FREE T3 3.73 pg/mL (2.5-3.9); FREE T4 (FREE THYROXINE) 0.81 ng/dL (0.58-1.64)
[2020-01-20 12:28] LABS: ALBUMIN 3.7 g/dL (3.2-5.5); ALBUMIN/GLOBULIN RATIO 1.1 (1.0-2.2); ALKALINE PHOSPHATASE 64 IU/L (42-121); ALT ALANINE AMINOTRANSFERASE 62 IU/L (10-60); AST ASPARTATE AMINOTRANSFERASE 57 IU/L (10-42); BILIRUBIN,TOTAL 0.8 mg/dL (0.2-1.0); BUN - BLOOD UREA NITROGEN 10 mg/dL (6-20); CALCIUM 8.9 mg/dL (8.5-10.3); CARBON DIOXIDE - CO2 25 mmol/L (21-32); CHLORIDE 104 mmol/L (101-111); CHOL/HDL RATIO 5.2 (<4.4); CHOLESTEROL 206 mg/dL; CREATININE 0.6 mg/dL (0.4-1.0); GLUCOSE 114 mg/dL (70-100); HDL CHOLESTEROL 40 mg/dL; LDL CHOLESTEROL,CALCULATED 150 mg/dL; LDL/HDL RATIO 3.8 (<4.4); SODIUM 138 mmol/L (135-145); TOTAL PROTEIN 7.2 g/dL (6.7-8.2); VLDL CHOLESTEROL 16 mg/dL
== END 2020-01-20 23:59 | disposition home or self-care (01) ==
LOC: LAB.WCP 08:58
PROVIDERS: ATTEND Nurse Practitioner
DX: Z00.00 Encounter for general adult medical examination without abnormal findings (principal); I47.1 Supraventricular tachycardia; E55.9 Vitamin D deficiency, unspecified; E03.9 Hypothyroidism, unspecified; E78.5 Hyperlipidemia, unspecified
CPT/HCPCS: 36415; 80053; 80061; 83721; 84439; 84443; 84481; 85025

== ENCOUNTER 2020-02-26 09:38 | Outpatient (CLI) | payer BC ==
--- NOTE | 2020-02-26 10:04 | SLEEP CARE CONSULTATION ---
Information from patient questionnaire entered by Randy Mendoza. I have reviewed and concur with the information entered by Randy Mendoza. This document represents the service I personally performed and the decisions made by , Kandi Avila ARNP. History of Present Illness Service Date and Time: 02/26/2020 09 Previous diagnosis: Mild, Obstructive Sleep Apnea-Hypopnea Syndrome AHI: 12.5 Reason for follow up: other (2-month followup - pressure change) Equipment type: CPAP Equipment obtained from: Other ([facility]; getting supplies as needed) Mask style: Nasal Backup mask available: Yes (other mask) Last cushion change: 1 week ago Prior sleep studies: No Year and Where: 09/2019 [facility] Type of Sleep Study: Polysomnography HPI additional information: CRISTIANO VAUGHAN was diagnosed to have mild, AHI 12.5, obstructive sleep apnea- hypopnea syndrome and returned today for CPAP therapy 2 month pressure change follow-up. Sleep Study - Results Prior sleep studies: No Year and Where: 09/2019 [facility] CPAP Compliance Data - Data Reviewed with Patient Average duration of nightly device use: 5 h 26 min Compliance rate %: 67.8 Current pressure setting (cmH2O): 8-12 Humidity settin Heated hose settin Average residual AHI: 4.1 Average large leak: 5 min 9 sec Subjective Missed days of use due to: reports: other (taking off mask in middle of night) Patient concerns: denies: aerophagia, mask discomfort, air blowing in eyes, mask leak noise, condensation in mask/hose, nasal congestion, dry mouth, nose, throat, epistaxis, other Observed to snore while using device: No Current pressure setting perceived as: comfortable On therapy, patient: reports: sleeping better, awakening more refreshed, being more awake and alert during the day, more rested overall. denies: drowsiness while driving Initial [place] Sleepiness Scale score: 6 (in 2019) Current [place] Sleepiness Scale score: 4 Allergies and Home Medications Drug allergies reviewed: Yes (Demerol) Home medication list reviewed: Yes (no changes) Review of Systems Review of systems same as previous: Yes (no changes) Physical Exam Heart Rate: 68 O2 Saturation: 98 Height: 5 ft 0.5 in Weight: 157 lb Body Mass Index: 30.1 BMI Classification: Obese Impression and Plan 1. Obstructive Sleep Apnea-Hypopnea Syndrome, mild, with fair treatment compliance and fair apnea control. On CPAP therapy, the patient has better sleep quality and is more rested overall. She just has the problem of moving a lot during the night and sometime taking mask off while sleeping. She does not know why. She does put back on if she finds it off. She feels the mask is comfortable. I am adjusting her pressure to reflect what is being used to 9-10 cm H2O and have her follow up in 1-2 months. Patient's apnea severity and ra tionale for treatment to reduce apnea, improve sleep quality and reduce cardiovascular and cerebrovascular events was reviewed. I also reviewed the benefit of consistent device use of CPAP for gastric reflux and anxiety. * Change auto CPAP pressure to 9-10 cmH2O * Notify me if snoring with mask or feeling that the pressure is too much or too little * Attempt to lose weight * Call this office if any problems using CPAP * Return for follow up in 1-2 months , or sooner if concerns arise Counseling Topics: Spare mask, Weight loss health impact Visit Type: In Office Time Spent with Patient (minutes): 17 Provider Statement: I spent 100% of the Face to Face Visit with the patient with greater than 50% spent counseling the patient and coordination of care.
== END 2020-02-26 09:39 | disposition home or self-care (01) ==
LOC: SC 09:38
PROVIDERS: ATTEND Nurse Practitioner Family
DX: G47.33 Obstructive sleep apnea (adult) (pediatric) (principal); E66.9 Obesity, unspecified; Z68.30 Body mass index [BMI] 30.0-30.9, adult
CPT/HCPCS: 99212; 99213

== ENCOUNTER 2020-04-06 12:42 | Outpatient (CLI) | payer BC ==
--- NOTE | 2020-04-06 15:26 | MRI Report ---
PROCEDURE: Cervical Spine W/O INDICATIONS: CERVICAL DISC DISORDER W/ RADICULOPATHY TECHNIQUE: Noncontrast sagittal T1 spin echo and T2 fast spin echo, sagittal STIR, foraminal oblique sagittal T2 fast spin echo, and axial gradient echo or T2 fast spin echo through the cervical spine. COMPARISON: None. FINDINGS: Image quality: Excellent. Alignment and Curvature: There is normal bony alignment. There is mild reversal normal cervical spin e curvature from C5-C7. Bone Marrow: Reactive endplate changes noted adjacent C5-C6, C6-C7 and C7-T1 discs. Spinal Cord: Visualized spinal cord has normal size and signal. No cerebellar tonsillar herniation. Paraspinous Soft Tissues: No paravertebral masses. Prevertebral soft tissues are normal in thicknes s. C2-C3: Loss of disc signal. No central stenosis. No neural foraminal narrowing. No neural compressio n. C3-C4: Loss of disc signal. Mild, diffuse disc bulge. No central stenosis. No neural foraminal narr owing. No neural compression. C4-C5: Loss of disc signal. Mild diffuse disc bulge. Mild left facet and uncovertebral hypertrophy. No central stenosis. Mild left neural foraminal narrowing. No neural compression. C5-C6: Loss of disc signal and height. Anterior endplate osteophytosis. Moderate, diffuse disc bulge . Moderate narrowing of the central canal. Mild bilateral facet hypertrophy. Moderate bilateral uncov ertebral joint hypertrophy. Severe bilateral neural foraminal narrowing with compression of the C6 ne rve roots. C6-C7: Loss of disc signal and height. Mild, diffuse disc bulge. Mild to moderate narrowing of the c entral canal. Mild bilateral facet hypertrophy. Moderate bilateral uncovertebral joint hypertrophy. S evere bilateral neural foraminal narrowing with compression of the exiting C7 nerve roots. C7-T1: Loss of disc signal. Mild, diffuse disc bulge. No central stenosis. Moderate left facet hyper trophy. Severe left neural foraminal narrowing with compression of the exiting left C8 nerve root. IMPRESSION: 1. Multilevel degenerative disc disease. 2. Multilevel facet and uncovertebral arthropathy. 3. No severe central canal narrowing. 4. Severe bilateral C5-C6 and C6-7 C7 neural foraminal narrowing with compression of the exiting bila teral C6 nerve roots and the exiting bilateral C7 nerve roots. Severe left C7-T1 neural foraminal aretha rowing with compression of exiting left C8 nerve root. Reviewed by: Yumiko Leong MD, PhD on 04/06/2020 3:25 PM PST Approved by: Yumiko Leong MD, PhD on 04/06/2020 3:25 PM PST Station ID: [id number]
== END 2020-04-06 12:43 | disposition home or self-care (01) ==
LOC: DI 12:42
PROVIDERS: ATTEND Nurse Practitioner
DX: M50.10 Cervical disc disorder with radiculopathy, unspecified cervical region (principal); M47.22 Other spondylosis with radiculopathy, cervical region

== ENCOUNTER 2020-04-06 12:50 | Outpatient (CLI) | payer BC ==
--- NOTE | 2020-04-06 14:35 | MRI Report ---
PROCEDURE: Lumbar Spine W/O INDICATIONS: LUMBAR DJD, SCOLIOSIS, LUMBAR BACK PAIN TECHNIQUE: Noncontrast sagittal T1 spin echo and T2 fast echo, sagittal STIR, axial T1 and T2 fast spin echo thr ough the lumbar spine. In cases with scoliosis, additional coronal T2 fast spin echo may be performe d. COMPARISON: Plain films of the lumbar spine dated 10/09/2019 FINDINGS: Image quality: Excellent. Alignment and Curvature: 5 lumbar type vertebral bodies are present by plain film. There is mild diff use leftward curvature of the mid/lower lumbar spine, as before. There is loss of normal lumbar lordo sis. There is mild, grade 1 retrolisthesis of L4 on L5 and L5 on S1. Bone Marrow: Marrow is of normal overall signal. No acute vertebral body compression fractures. Th ere is moderate reactive signal within the end plates adjacent to the L3-L4 intervertebral disc. Mild reactive signal within the endplates adjacent to the L1-L2, L2-L3, L4-L5, and L5-S1 intervertebral d iscs. Spinal Cord: Conus medullaris terminates at the lower L2 level. Visualized cord demonstrates normal signal and size. Paraspinous Soft Tissues: No paravertebral masses. T12-L1: Normal in appearance. L1-L2: Mild disc desiccation and diffuse disc bulge. Small superimposed right paracentral protrusi on. Mild facet and ligament flavum hypertrophy. Mild epidural lipomatosis. Mild canal stenosis. Mild bilateral foraminal stenosis. L2-L3: Mild disc desiccation and diffuse disc bulge. Mild facet and ligament flavum hypertrophy. M ild epidural lipomatosis. Mild canal stenosis. Mild bilateral foraminal stenosis. L3-L4: Moderate disc height loss and desiccation. Mild diffuse disc bulge with superimposed broad-b ased right posterolateral and far lateral protrusion. Mild facet and ligament flavum hypertrophy. Mil d epidural lipomatosis. Mild canal stenosis. Moderate right and mild left foraminal stenosis. L4-L5: Moderate disc desiccation. Mild disc height loss and diffuse disc bulge with superimposed br oad-based left paracentral and posterolateral protrusion. Mild facet and ligament flavum hypertrophy. Mild canal stenosis. Moderate left and mild right foraminal stenosis. L5-S1: Mild disc desiccation and diffuse disc bulge. Mild facet and ligament flavum hypertrophy. Mi ld canal stenosis. Severe left and mild right foraminal stenosis. Left L5 nerve root compression. IMPRESSION: 1. Multilevel degenerative disc and facet disease, in addition to epidural lipomatosis and ligamentum flavum hypertrophy. 2. Mild multilevel canal stenoses. 3. Multilevel foraminal stenoses, worst on the left at L5-S1 where there is associated intraforaminal nerve root compression. Recommend correlation with clinical symptoms to ascertain relevance of these findings. Reviewed by: Fito Barillas MD on 04/06/2020 2:34 PM PST Approved by: Fito Barillas MD on 04/06/2020 2:34 PM PST Station ID: [id number]
== END 2020-04-06 12:51 | disposition home or self-care (01) ==
LOC: DI 12:50
PROVIDERS: ATTEND Nurse Practitioner
DX: M51.17 Intervertebral disc disorders with radiculopathy, lumbosacral region (principal); M48.07 Spinal stenosis, lumbosacral region; M47.27 Other spondylosis with radiculopathy, lumbosacral region; M50.10 Cervical disc disorder with radiculopathy, unspecified cervical region; M47.22 Other spondylosis with radiculopathy, cervical region; M41.9 Scoliosis, unspecified

== ENCOUNTER 2020-04-09 10:39 | Outpatient (CLI) | payer BC ==
--- NOTE | 2020-04-10 10:45 | Mammography Report ---
BILATERAL DIGITAL SCREENING MAMMOGRAM 3D/2D WITH AUGMENTATION: 04/09/2020 CLINICAL: Routine screening. Comparison is made to exams dated: 01/04/2019 ultrasound, 12/21/2018 mammogram, 07/19/2016 mammogram, 10/22/2013 mammogram - [facility], and 02/09/2011 mammogram - [facility]. There are scattered fibroglandular elements in both breasts. No significant masses, calcifications, or other findings are seen in either breast. There has been no significant interval change. IMPRESSION: NEGATIVE There is no mammographic evidence of malignancy. A 1 year screening mammogram is recommended. This exam was interpreted at Station ID: [id number]. NOTE: For mammograms, a report in lay terms will be sent to the patient. Approximately 15% of breast malignancies will not be visualized mammographically. In the management of a palpable breast mass, a negative mammogram must not discourage biopsy of a clinically suspicious lesion. Electronically Signed By: Colin Schaffer M.D. [email or web address]:04/09/2020 13:49:28 ACR BI-RADS Category 1: Negative 3341F PARENCHYMAL PATTERN: (A) - The breast(s) demonstrate(s) scattered fibroglandular densities. BI-RADS CATEGORY: (1) - 1 RECOMMENDATION: (ANNUAL) - Recommend routine annual screening mammography. [id number] 1 year screening LATERALITY: (B)
== END 2020-04-09 10:40 | disposition home or self-care (01) ==
LOC: DI.N 10:39
PROVIDERS: ATTEND Nurse Practitioner
DX: Z12.31 Encounter for screening mammogram for malignant neoplasm of breast (principal)

== ENCOUNTER 2020-05-22 08:00 | Outpatient (CLI) | payer BC ==
[2020-05-22 17:49] LABS: BASOPHILS # (AUTO) 0.1 10^3/uL (0.0-0.1); BASOPHILS % (AUTO) 0.9 %; EOSINOPHILS # (AUTO) 0.2 10^3/uL (0.0-0.7); EOSINOPHILS % (AUTO) 2.5 %; HCT - HEMATOCRIT 42.7 % (37.0-47.0); HGB - HEMOGLOBIN 13.5 g/dL (12.0-16.0); LYMPHOCYTES % (AUTO) 30.4 %; MEAN CORPUSCULAR HEMOGLOBIN 33.4 pg (27.0-31.0); MEAN CORPUSCULAR HGB CONC 31.6 g/dL (32.0-36.0); MEAN CORPUSCULAR VOLUME 105.7 fL (81.0-99.0); MONOCYTES % (AUTO) 14.9 %; NEUTROPHILS # (AUTO) 3.3 10^3/uL (1.5-6.6); NEUTROPHILS % (AUTO) 51.1 %; PLT - PLATELET COUNT 219 10^3/uL (130-450); RED BLOOD COUNT 4.04 10^6/uL (4.20-5.40); RED CELL DISTRIBUTION WIDTH 13.2 % (12.0-15.0); WHITE BLOOD COUNT 6.5 x10^3/uL (4.8-10.8)
[2020-05-22 18:18] LABS: ALBUMIN 4.1 g/dL (3.2-5.5); ALBUMIN/GLOBULIN RATIO 1.2 (1.0-2.2); ALKALINE PHOSPHATASE 57 IU/L (42-121); ALT ALANINE AMINOTRANSFERASE 62 IU/L (10-60); AST ASPARTATE AMINOTRANSFERASE 72 IU/L (10-42); BILIRUBIN,TOTAL 1.1 mg/dL (0.2-1.0); BUN - BLOOD UREA NITROGEN 11 mg/dL (6-20); CALCIUM 9.2 mg/dL (8.5-10.3); CARBON DIOXIDE - CO2 26 mmol/L (21-32); CHLORIDE 99 mmol/L (101-111); CHOL/HDL RATIO 4.7 (<4.4); CHOLESTEROL 253 mg/dL; CREATININE 0.7 mg/dL (0.4-1.0); GFR - MDRD 86 (>89); GLUCOSE 118 mg/dL (70-100); HDL CHOLESTEROL 54 mg/dL; LDL CHOLESTEROL,CALCULATED 178 mg/dL; LDL/HDL RATIO 3.3 (<4.4); POTASSIUM 4.4 mmol/L (3.5-5.0); SODIUM 135 mmol/L (135-145); TOTAL PROTEIN 7.6 g/dL (6.7-8.2); TRIGLYCERIDES 107 mg/dL; VLDL CHOLESTEROL 21 mg/dL
[2020-05-22 18:42] LABS: ESTIMATED AVERAGE GLUCOSE 120 mg/dL (70-100); HEMOGLOBIN A1c% 5.8 % (4.27-6.07)
== END 2020-05-22 23:59 | disposition home or self-care (01) ==
LOC: LAB.WCP 08:00
PROVIDERS: ATTEND Nurse Practitioner
DX: D75.89 Other specified diseases of blood and blood-forming organs (principal); E78.5 Hyperlipidemia, unspecified; Z79.899 Other long term (current) drug therapy; R94.5 Abnormal results of liver function studies; E55.9 Vitamin D deficiency, unspecified; R73.01 Impaired fasting glucose
CPT/HCPCS: 36415; 80053; 80061; 82306; 82607; 83036; 83721; 85025

== ENCOUNTER 2020-07-02 10:30 | Outpatient (CLI) | payer BC ==
--- NOTE | 2020-07-02 11:03 | SLEEP CARE CONSULTATION ---
Information from patient questionnaire entered by Pamela Salamanca. I have reviewed and concur with the information entered by Pamela Salamanca. This document represents the service I personally performed and the decisions made by , Kandi Avila ARNP. History of Present Illness Service Date and Time: 07/02/2020 1030 Previous diagnosis: Mild, Obstructive Sleep Apnea-Hypopnea Syndrome AHI: 12.5 (in 2019) Reason for follow up: other (5 month with pressure change) Equipment type: CPAP Equipment obtained from: Other ([facility], getting supplies as needed) Mask style: Nasal Backup mask available: Yes (other mask) Last cushion change: 2 days ago Prior sleep studies: Yes Year and Where: 2019 - [facility] HPI additional information: CRISTIANO VAUGHAN was diagnosed to have mild, AHI 12.5, obstructive sleep apnea-hy popnea syndrome and returned today for CPAP therapy two month follow-up. CPAP Compliance Data - Data Reviewed with Patient Average duration of nightly device use: 5 hr 50 min Compliance rate %: 62 (150 days) Current pressure setting (cmH2O): 9-10 Humidity settin Heated hose settin Average residual AHI: 3.1 Average large leak: 4 min 43 sec Subjective Patient concerns: reports: mask discomfort (just having something on her head/face; she is a active sleeper). denies: aerophagia, air blowing in eyes, mask leak noise, condensation in mask/hose, nasal congestion, dry mouth, nose, throat, epistaxis, other Observed to snore while using device: No Current pressure setting perceived as: comfortable On therapy, patient: reports: sleeping better, awakening more refreshed, being more awake and alert during the day, more rested overall. denies: drowsiness while driving Initial [place] Sleepiness Scale score: 6 (in 2020) Current [place] Sleepiness Scale score: 6 Allergies and Home Medications Home medication list reviewed: Yes (Metformin, Atorvastatin) Review of Systems Review of systems same as previous: Yes (no changes) Physical Exam Heart Rate: 88 O2 Saturation: 97 Height: 5 ft 0.5 in Weight: 162 lb Body Mass Index: 31.1 BMI Classification: Obese Impression and Plan 1. Obstructive Sleep Apnea-Hypopnea Syndrome, mild, with fair treatment compliance and good apnea control. On CPAP therapy, the patient has better sleep quality and is more rested overall. She has mildly reduced compliance and missed 19 days of use in last 150 days. She sometimes will removed mask because it is uncomfortable during the night. Compliance guidelines reviewed for insurance coverage. Patient is encouraged to use CPAP with all sleep. She also has difficulty with waking up at 3 AM and having her mind racing and not able to go back to sleep. I advised her to get out of bed when this happens and write down these thoughts. When she is done, she should sit quietly or if sleepy go lay down and try to go back to sleep. She voiced understanding and agreement with plan. I will have her follow up in 1-2 months to recheck her compliance. She is getting a Pelitron to start a different exercise program to be able to lose weight prior to back surgery planned in future. Patient's apnea severity and rationale for treatment to reduce apnea, improve sleep quality and reduce cardiovascular and cerebrovascular events was reviewed. I also reviewed the benefit of consistent device use of CPAP for gastric reflux and anxiety. * Continue auto CPAP pressure at 9-10 cmH2O * Notify me if snoring with mask or feeling that the pressure is too much or too little * Continue to try to lose weight, increase activity/exercise * Call this office if any problems using CPAP * Return for follow up in 1-2 months to check compliance, or sooner if concerns arise Counseling Topics: Spare mask, Weight loss health impact Visit Type: In Office Time Spent with Patient (minutes): 20 Provider Statement: I spent 100% of the Face to Face Visit with the patient with greater than 50% spent counseling the patient and coordination of care.
== END 2020-07-02 10:31 | disposition home or self-care (01) ==
LOC: SC 10:30
PROVIDERS: ATTEND Nurse Practitioner Family
DX: G47.33 Obstructive sleep apnea (adult) (pediatric) (principal); E66.9 Obesity, unspecified; Z68.31 Body mass index [BMI] 31.0-31.9, adult
CPT/HCPCS: 99212

== ENCOUNTER 2020-07-04 23:05 | Emergency (ER) | payer BC ==
--- NOTE | 2020-07-05 00:05 | ED Physician Documentation ---
PD HPI UPPER EXT INJURY - Stated complaint Stated Complaint: GLF/COLLARBONE PX - Chief complaint Chief Complaint: Trauma Ext - History obtained from History obtained from: Patient - History of Present Illness Location: Left, Clavicle Type of injury: Fall Where injury occurred: Home Timing - onset: Today Timing - duration: Minutes Timing - details: Abrupt onset, Still present Improved by: Rest, Immobilization Worsened by: Moving, Palpating Associated symptoms: No: Weakness, Numbness, Tingling Contributing factors: No: Anticoagulated Similar symptoms before: Has not had sx before Recently seen: Not recently seen - Additonal information Additional information: 60-year-old female reports she had been drinking and arrives to the emergency department appearing fairly intoxicated. She states that she fell in her home tripped around a chair and landed on the ground contusing her left shoulder. She has pain over the shoulder and distal clavicle and no deformity. She is certain she has broken her clavicle. 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 Cardiovascular: Vascular surgery - Present Medications Home Medications: Ambulatory Orders Medication Instructions Recorded Confirmed Omeprazole 20 mg PO DAILY 05/14/17 07/04/20 Venlafaxine [Effexor] 37.5 mg PO BID 05/14/17 07/04/20 - Allergies Allergies/Adverse Reactions: Allergies Allergy/AdvReac Type Severity Reaction Status Date / Time meperidine [From Demerol] Allergy Hives Verified 07/04/20 23:16 - Social History Does the pt smoke?: No Smoking Status: Never smoker Does the pt drink ETOH?: Yes Does the pt have substance abuse?: No - Immunizations Immunizations are current?: Yes - POLST Patient has POLST: No PD ED PE NORMAL - Vitals Vital signs reviewed: Yes (hypertensive ) - General General: Alert and oriented X 3, No acute distress, Well developed/nourished, Other (The patient appears intoxicated and happy) - HEENT HEENT: Atraumatic, PERRL, EOMI - Neck Neck: Supple, no meningeal sign, No bony TTP - Respiratory Respiratory: No respiratory distress - Derm Derm: Normal color, Warm and dry, No rash - Extremities Extremities: Other (There is tenderness to palpation of the distal clavicle and a deformity consistent with a clavicle fracture. There is reduced range of motion of the shoulder secondary to pain. The patient is able to move her arm and hand has no numbness.) Results - Vitals Vitals: Vital Signs - 24 hr 07/04/20 07/05/20 23:10 00:27 Temperature 36.7 C 36.6 C Heart Rate 82 77 Respiratory 16 18 Rate Blood Pressure 131/87 H 109/76 O2 Saturation 97 97 Oxygen O2 Source Room air - Rads (name of study) shoulder L Radiology: Prelim report reviewed (Impression: 1. Mild subluxation of the glenohumeral joint superiorly. No dislocation. Complete oblique fracture distal clavicular head with half shaft displacement.), EMP read indepedently, See rad report Left clavicle Radiology: Prelim report reviewed (Impression: Complete oblique fracture distal clavicle nuclear head with half shaft displacement subtle superior subluxation of the glenohumeral joint.), EMP read indepedently, See rad report PD MEDICAL DECISION MAKING - ED course Complexity details: reviewed results, re-evaluated patient, considered differential, d/w patient ED course: 60-year-old female with a fall while intoxicated has fractured her distal left clavicle. She does have some subluxation of the humeral head as well. She is placed into a sling and she is given Toradol 60 mg IM. There is a critical case down the mchugh and before I can come back into the room to disposition the patient she eloped from the emergency department. Departure - Departure Disposition: ED Elope Clinical Impression: Clavicle fracture Qualifiers: Encounter type: initial encounter Clavicle location: lateral end Fracture type: closed Fracture alignment: displaced Laterality: left Qualified Code(s): S42.032A - Displaced fracture of lateral end of left clavicle, initial encounter for closed fracture Discharge Date/Time: 07/05/20 01:00
[2020-07-05] MEDS ORDERED: KETOROLAC 60 MG/2 ML VIAL IM STA (00:07)
[2020-07-05 01:09] VITALS: BP 109/76
--- NOTE | 2020-07-05 08:12 | XRAY Report ---
PROCEDURE: Shoulder 3 View LT INDICATIONS: injury/fall L shoulder deformity/swelling TECHNIQUE: 4 views of the shoulder were acquired. COMPARISON: Correlation is made with the accompanying clavicle plain films, 07/04/2020. FINDINGS: Bones: There is a moderately displaced fracture of the left distal clavicle. No additional fractures can be seen. No dislocation can be seen. Mild superior subluxation of the l eft humeral head can be seen within the glenoid fossa. No suspicious bony lesions. Visualized ribs a ppear intact. Soft tissues: No suspicious soft tissue calcifications. The visualized lung demonstrates a normal a ppearance. IMPRESSION: Moderately displaced distal clavicle fracture. Note: No significant discrepancy from the preliminary report. Reviewed by: Jonathan Freeman MD on 07/05/2020 7:11 AM LOLITA Approved by: Jonathan Freeman MD on 07/05/2020 7:11 AM LOLITA Station ID: [id number]
--- NOTE | 2020-07-05 08:13 | XRAY Report ---
PROCEDURE: Clavicle LT INDICATIONS: fall deformity TECHNIQUE: 2 views of the clavicle were acquired. COMPARISON: Correlation is made with the accompanying left shoulder plain films, 07/16/2020. FINDINGS: Bones: There is a moderately displaced distal clavicle fracture seen. No additional fractures can be seen. The visualized ribs appear intact. No dislocations. No suspicious bony lesions. Soft tissues: No suspicious soft tissue calcifications. IMPRESSION: Moderately displaced distal clavicle fracture. Note: No significant discrepancy from the preliminary report. Reviewed by: Jonathan Freeman MD on 07/05/2020 7:12 AM LOLITA Approved by: Jonathan Freeman MD on 07/05/2020 7:12 AM LOLITA Station ID: [id number]
== END 2020-07-05 01:00 | disposition left against medical advice (07) ==
LOC: ED 23:05
DX: S42.032A Displaced fracture of lateral end of left clavicle, initial encounter for closed fracture (principal); W18.09XA Striking against other object with subsequent fall, initial encounter; Y92.009 Unspecified place in unspecified non-institutional (private) residence as the place of occurrence of the external cause
CPT/HCPCS: 99283; 99284

== ENCOUNTER 2020-07-05 11:06 | Emergency (ER) | payer BC ==
[2020-07-05] MEDS ORDERED: oxyCODONE 5 MG TABLET PO STA (11:27)
[2020-07-05] MEDS ORDERED: KETOROLAC 30 MG/ML VIAL IM STA (11:31)
--- NOTE | 2020-07-05 11:33 | ED Physician Documentation ---
History of Present Illness - Stated complaint Stated Complaint: SHOULDER PX - Chief complaint Chief Complaint: Trauma Ext - History obtained from History obtained from: Patient - Additonal information Additional information: 60yF presents after leaving mid workup for a clavicle fracture. she returns now to complete her workup. no interval changes in history. 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 Cardiovascular: Vascular surgery - Present Medications Home Medications: Ambulatory Orders Medication Instructions Recorded Confirmed Omeprazole 20 mg PO DAILY 05/14/17 07/05/20 Atorvastatin [Lipitor] 20 mg ORAL HS 07/05/20 07/05/20 Losartan [Cozaar] 50 mg PO DAILY 07/05/20 07/05/20 Propranolol [Inderal] 40 mg PO DAILY PRN 07/05/20 07/05/20 Venlafaxine ER [Effexor ER] 75 mg PO DAILY 07/05/20 07/05/20 metFORMIN [Glucophage] 500 mg PO DAILY 07/05/20 07/05/20 oxyCODONE/ACET 5/325 [Percocet 5 1 each PO Q4-6H PRN #14 tablet 07/05/20 mg/325 mg] - Allergies Allergies/Adverse Reactions: Allergies Allergy/AdvReac Type Severity Reaction Status Date / Time meperidine [From Demerol] Allergy Hives Verified 07/05/20 11:10 - Social History Does the pt smoke?: No Smoking Status: Former smoker Does the pt drink ETOH?: Yes ETOH Use: Wine Does the pt have substance abuse?: No - Immunizations Immunizations are current?: Yes - POLST Patient has POLST: No PD ED PE NORMAL - Vitals Vital signs reviewed: Yes - General General: Alert and oriented X 3, No acute distress, Well developed/nourished - HEENT HEENT: Atraumatic, PERRL, EOMI - Neck Neck: Supple, no meningeal sign, No bony TTP - Cardiac Cardiac: Other (clavicle ttp) - Extremities Extremities: Other (2+ BL raidal pulses, sensation, strength) - Neuro Neuro: Alert and oriented X 3, No motor deficit, No sensory deficit Results - Vitals Vitals: Oxygen O2 Source Room air PD MEDICAL DECISION MAKING - ED course ED course: 60yF presents for further evaluation of her clavicle fx sustained from a fall. Sling was placed. conservative measures discussed. patietn will f/u with orthopedics. Departure - Departure Disposition: 01 Home, Self Care Clinical Impression: Clavicle fracture Condition: Good Instructions: ED Fx Clavicle Follow-Up: Timbo Hoff MD [Provider Admit Priv/Credential] - Prescriptions: oxyCODONE/ACET 5/325 [Percocet 5 mg/325 mg] 1 each PO Q4-6H PRN #14 tablet PRN Reason: Pain Comments: You were seen in the emergency department for a clavicle fracture. Please follow-up with orthopedics in 1 week. Return to emergency department if you expands any new or worsening symptoms or have other concerns. Discharge Date/Time: 07/05/20 11:57
[2020-07-05 11:57] VITALS: BP 94/61
== END 2020-07-05 11:57 | disposition home or self-care (01) ==
LOC: ED 11:06
DX: S42.009A Fracture of unspecified part of unspecified clavicle, initial encounter for closed fracture (principal); W01.0XXA Fall on same level from slipping, tripping and stumbling without subsequent striking against object, initial encounter; I10 Essential (primary) hypertension; E11.9 Type 2 diabetes mellitus without complications; Z79.84 Long term (current) use of oral hypoglycemic drugs; Z87.891 Personal history of nicotine dependence
CPT/HCPCS: 96372; 99283; A9270

== ENCOUNTER 2020-11-25 09:36 | Outpatient (CLI) | payer BC ==
--- NOTE | 2020-11-25 09:58 | SLEEP CARE CONSULTATION ---
Information from patient questionnaire entered by Qi Joe. I have reviewed and concur with the information entered by Qi Joe. This document represents the service I personally performed and the decisions made by , Kandi Avila ARNP. History of Present Illness Service Date and Time: 11/25/2020 0936 Previous diagnosis: Mild, Obstructive Sleep Apnea-Hypopnea Syndrome AHI: 12.5 (in 2019) Reason for follow up: other (4 month, CPAP recall questions) Equipment type: CPAP Equipment obtained from: Other ([facility], getting supplies as needed) Mask style: Nasal Backup mask available: Yes (old mask) Prior sleep studies: Yes Year and Where: 2019 - [facility] Type of Sleep Study: Polysomnography HPI additional information: CRISTIANO VAUGHAN was diagnosed to have mild, AHI 12.5, obstructive sleep apnea-hypopnea syndrome and returns via video Telehealth visit today for CPAP therapy 4 month follow-up with recall questions. Sleep Study - Results Type of Sleep Study: Polysomnography Prior sleep studies: Yes Year and Where: 2019 - [facility] CPAP Compliance Data - Data Reviewed with Patient Average duration of nightly device use: 6 hours 23 minutes Compliance rate %: 78.6 (last 14 days, 56.7 last 30 days) Current pressure setting (cmH2O): 9-10 Humidity settin Heated hose settin Average residual AHI: 6.1 Average large leak: 2 minutes 46 seconds Subjective Missed days of use due to: reports: other (cpap recall) Patient concerns: reports: other (throat irritation and cough, mostly at night, starts before using CPAP). denies: aerophagia, mask discomfort, air blowing in eyes, mask leak noise, condensation in mask/hose, nasal congestion, dry mouth, nose, throat, epistaxis Observed to snore while using device: No Current pressure setting perceived as: comfortable On therapy, patient: reports: sleeping better, awakening more refreshed, being more awake and alert during the day, more rested overall. denies: drowsiness while driving Initial [place] Sleepiness Scale score: 6 (in 2019) Current [place] Sleepiness Scale score: 6 Allergies and Home Medications Home medication list reviewed: Yes (no changes) Review of Systems Review of systems same as previous: Yes (no changes) Physical Exam Vital signs obtained and entered by: Telehealth visit to reduce exposure during Covid pandemic Height: 5 ft 6 in Impression and Plan 1. Obstructive Sleep Apnea-Hypopnea Syndrome, mild, with good treatment compliance and fair apnea control with elevated residual AHI. On CPAP therapy, the patient has better sleep quality and is more rested overall. Patient comes in today with questions about the [employer]'s recall. Patient has already registered their device for the recall. Patient has not seen any black debris in her device but she does have some throat irritation that causes her to cough that starts prior to using her device. She states it gets worse when she does use her CPAP. She is not sure if it is related to the recall or not. Patient informed that they may use an inline CPAP filter that they can obtain online to reduce chance of any particles being inhaled or ingested. We discussed thoroughly the health risks of not using the CPAP versus continuing use with the filter in place. If patient is not able to sleep due to waking up choking, gasping for air or other respiratory distress that they may decide to continue using it until it is either replaced or repaired. If patient has an older device that is not on the recall they may switch to using that in the meantime. Patient is in mild range on their side and may practice positional therapy by staying off their back to control apnea as much as able or try to obtain an oral appliance to control apnea. Patient would like to look into getting an oral appliance. I will write a prescription and have this sent to her home with a copy of a list of dentists in the area. Patient advised that this may not be covered well by her insurance and that she should check coverage before she moves forward with this. Patient voiced understanding and agreement with plan. Patient was encouraged to lose weight for their overall health and to reduce apneas. Patient's apnea severity and rationale for treatment to reduce apnea, improve sleep quality and reduce cardiovascular and cerebrovascular events was reviewed. I also reviewed the benefit of consistent device use of CPAP for gastric reflux and anxiety. * Continue auto CPAP pressure at 9-10 cmH2O with particle filter, stop if debris is seen * Oral appliance prescription * Notify me if snoring with mask or feeling that the pressure is too much or too little * Attempt to lose weight * Call this office if any problems using CPAP * Return for follow up in about 3 months, or sooner if concerns arise Counseling Topics: Sleeping position, Spare mask, Weight loss health impact Visit Type: Telehealth Video Video Type: VSee Patient Location: Home Location of Provider: Office Patient agrees and consents to this telehealth visit type: Yes Patient agrees to have their insurance billed: Yes Time Spent with Patient (minutes): 23 Provider Statement: I spent 100% of the Telehealth Video Call with the patient with greater than 50% spent counseling the patient and coordination of care.
== END 2020-11-25 09:37 | disposition home or self-care (01) ==
LOC: SC 09:36
PROVIDERS: ATTEND Nurse Practitioner Family
DX: G47.33 Obstructive sleep apnea (adult) (pediatric) (principal)

== ENCOUNTER 2021-09-24 21:12 | Emergency (ER) | payer BC ==
[2021-09-24] MEDS ORDERED: LIDOCAINE VISCOUS 2% 15 ML UDC MM STA (21:25)
[2021-09-24] MEDS ORDERED: TETANUS/DIPHTHERIA/PERTUSSIS 0.5 ML SYRINGE IM ONE (21:25)
--- OUTSIDE RECORDS SUMMARY | 2021-09-24 21:25 | EXTERNAL MEDICAL SUMMARY RPT | Continuity of Care Document ---
:1960 Author Organization [facility] Address [address] [place] [address] Phone Allergies No information. Encounters No information. Functional Status No information. Immunizations No information. Medications No information. Problems No information. Procedures No information. Results/Labs test date author facility value unit interpret ation Result panel 1 (unknown) (no (unknown) (unknown) (no value) (units (unk nown) date) unknown) (unknown) (no (unknown) (unknown) [address] [place] [address] (units (unknown) date) unknown) (unknown) (no (unknown) (unknown) [place], [place] (units ( unknown) date) [id number] unknown) (unknown) (no (unknown) (unknown) [facility] (units (unknown) date) unknown) (unknown) (no (unknown) (unknown) Magnetic (units (unkno wn) date) Resonance Report unknown) (unknown) (no (unknown) (unknown) Signed (units (unkno wn) date) unknown) (unknown) (no (unknown) (unknown) (no value) (units (unk nown) date) unknown) (unknown) (no (unknown) (unknown) 07/16/21 (units (unkno wn) date) unknown) (unknown) (no (unknown) (unknown) 1. Multilevel (units ( unknown) date) degenerative disc unknown) disease and arthropathy results in varying (unknown) (no (unknown) (unknown) Alignment and (units ( unknown) date) Curvature: There unknown) is normal bony alignment. Mild convex left (unknown) (no (unknown) (unknown) Approved by: Chris Mayunits (unknown) date) Raciel Mackenzie on unknown) 07/18/2021 at 8:37 (unknown) (no (unknown) (unknown) Bone Marrow: (units (u nknown) date) Degenerative unknown) chronic endplate changes noted particularly at L2-3, (unknown) (no (unknown) (unknown) COMPARISON: (units (un known) date) [facility], unknown) MR, L-SPINE WITHOUT CONTRAST, 02/02/2015, 16:49. (unknown) (no (unknown) (unknown) FINDINGS: (units (unkn own) date) unknown) (unknown) (no (unknown) (unknown) IMPRESSION: (units (un known) date) unknown) (unknown) (no (unknown) (unknown) INDICATIONS: (units (u nknown) date) SPONDYLOSIS unknown) WITHOUT MYELOPATHY OR RADICULOPATHY (unknown) (no (unknown) (unknown) Image quality: (units (unknown) date) Excellent. unknown) (unknown) (no (unknown) (unknown) L1-L2: Normal (units (unknown) date) appearance. unknown) (unknown) (no (unknown) (unknown) L2-L3: Normal (units (unknown) date) appearance. unknown) (unknown) (no (unknown) (unknown) L3-L4: Disc (units (u nknown) date) space narrowing unknown) with circumferential disc bulge and ligamentum (unknown) (no (unknown) (unknown) L4-5 and L5-S1, (units (unknown) date) similar to the unknown) prior exam (unknown) (no (unknown) (unknown) L4-L5: Disc (units (u nknown) date) space narrowing unknown) with asymmetric left disc bulge effaces the left (unknown) (no (unknown) (unknown) L5-S1 (units (unkno wn) date) unknown) (unknown) (no (unknown) (unknown) L5-S1: Disc (units (u nknown) date) space narrowing unknown) and asymmetric left disc bulge with hypertrophic (unknown) (no (unknown) (unknown) Noncontrast (units (un known) date) sagittal T1 spin unknown) echo and T2 fast echo, sagittal STIR, and T2 fast (unknown) (no (unknown) (unknown) Paraspinous Soft (units (unknown) date) Tissues: No unknown) paravertebral masses. (unknown) (no (unknown) (unknown) Spinal Cord: (units (u nknown) date) Conus medullaris unknown) terminates at the L1 level. Visualized cord (unknown) (no (unknown) (unknown) T12-L1: Normal (units (unknown) date) appearance. unknown) (unknown) (no (unknown) (unknown) TECHNIQUE: (units (unk nown) date) unknown) (unknown) (no (unknown) (unknown) central and (units (un known) date) foraminal stenosis unknown) including moderate to severe left foraminal (unknown) (no (unknown) (unknown) joints present. (units (unknown) date) No central unknown) stenosis. No right and moderate to severe left (unknown) (no (unknown) (unknown) may be performed. (units (unknown) date) unknown) (unknown) (no (unknown) (unknown) normal signal and (units (unknown) date) size. unknown) (unknown) (no (unknown) (unknown) recess. Mild (units ( unknown) date) central stenosis. unknown) No right stenosis. Moderate to severe left (unknown) (no (unknown) (unknown) results in (units (unk nown) date) moderate central unknown) stenosis. Moderate right and mild left foraminal (unknown) (no (unknown) (unknown) scoliosis (units (unkn own) date) present. unknown) (unknown) (no (unknown) (unknown) stenosis (units (unkno wn) date) unknown) (unknown) (no (unknown) (unknown) stenosis. (units (unkn own) date) unknown) (unknown) (no (unknown) (unknown) through the (units (un known) date) lumbar spine. In unknown) cases with scoliosis, additional coronal T2 fast (unknown) (no (unknown) (unknown) [id number] (units (unkno wn) date) unknown) (unknown) (no (unknown) (unknown) Accession Number: (units (unknown) date) [id number] unknown) (unknown) (no (unknown) (unknown) Age/Sex: 61 / F (units (unknown) date) Date of Service: unknown) (unknown) (no (unknown) (unknown) : 1960 (units (unknown) date) Acct:[id number] unknown) (unknown) (no (unknown) (unknown) L3-4 and (units (unkno wn) date) unknown) (unknown) (no (unknown) (unknown) Loc: MRI (units (unkno wn) date) unknown) (unknown) (no (unknown) (unknown) Ordering (units (unkno wn) date) Provider: unknown) Junior Murillo MD (unknown) (no (unknown) (unknown) PROCEDURE: MR (units (unknown) date) LUMBAR SPINE WO unknown) CON (unknown) (no (unknown) (unknown) Patient: (units (unkno wn) date) Cristiano Vaughan unknown) MR#: [id number] (unknown) (no (unknown) (unknown) Procedure: MR (units ( unknown) date) lumbar spine wo unknown) con (unknown) (no (unknown) (unknown) degrees of (units (unk nown) date) unknown) (unknown) (no (unknown) (unknown) demonstrates (units (u nknown) date) unknown) (unknown) (no (unknown) (unknown) facet (units (unkno wn) date) unknown) (unknown) (no (unknown) (unknown) flavum laxity (units ( unknown) date) unknown) (unknown) (no (unknown) (unknown) foraminal (units (unkn own) date) unknown) (unknown) (no (unknown) (unknown) lateral (units (unkno wn) date) unknown) (unknown) (no (unknown) (unknown) lumbar (units (unkno wn) date) unknown) (unknown) (no (unknown) (unknown) spin echo (units (unkn own) date) unknown) (unknown) (no (unknown) (unknown) stenosis (units (unkno wn) date) unknown) (unknown) (no (unknown) (unknown) stenosis at (units (un known) date) unknown) Social History No information. Vital Signs No information.
--- NOTE | 2021-09-24 21:26 | ED Physician Documentation ---
History of Present Illness - Stated complaint Stated Complaint: LOW BP/SYNCOPE - History obtained from History obtained from: Patient - History of Present Illness Timing: Prior to arrival - Additonal information Additional information: 61-year-old female with history of hemochromatosis presents with her daughter for inner lip injury after syncopal episode that occurred just prior to arrival. Patient states that she gets regular phlebotomy for her hemochromatosis, her last phlebotomy session was yesterday. She states that when this happens she becomes lightheaded and has passed out in the past. This morning she took a nap and when she got up she passed out, hitting her lower jaw on the floor. She is here today for evaluation of an inner lip laceration. Tetanus shot is up-to-date. Patient was noted to be hypotensive in triage, patient states that this is normal for her after her phlebotomy sessions. She states that she does not want any work-up performed other than repair of her lip laceration. 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 : None HEENT: None Psych: Anxiety Musculoskeletal: Chronic back pain Derm: None - Past Surgical History Past Surgical History: Yes /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: Other Cardiovascular: Vascular surgery - Present Medications Home Medications: Ambulatory Orders Medication Instructions Recorded Confirmed Omeprazole 20 mg PO BID 05/14/17 09/15/21 Atorvastatin [Lipitor] 20 mg ORAL HS 07/05/20 09/15/21 Losartan [Cozaar] 50 mg PO BID 07/05/20 09/15/21 Propranolol [Inderal] 40 mg PO BID 07/05/20 09/15/21 Venlafaxine ER [Effexor ER] 75 mg PO DAILY 07/05/20 09/15/21 metFORMIN [Glucophage] 500 mg PO DAILY 07/05/20 09/15/21 Aspirin [Vazalore] 81 mg PO 08/11/21 Gabapentin [Gralise] 300 mg PO UD 08/11/21 09/15/21 Amox/Clav 875/125 [Augmentin] 1 each PO Q12H #20 tablet 09/24/21 Lidocaine Viscous 2% [Xylocaine 5 ml MM Q4H #100 ml 09/24/21 Viscous 2%] - Allergies Allergies/Adverse Reactions: Allergies Allergy/AdvReac Type Severity Reaction Status Date / Time meperidine [From Demerol] Allergy Hives Verified 07/05/20 11:10 - Social History Does the pt smoke?: No Smoking Status: Former smoker Does the pt drink ETOH?: Yes Does the pt have substance abuse?: No - Immunizations Immunizations are current?: Yes - POLST Patient has POLST: No PD ED PE NORMAL - Vitals Vital signs reviewed: Yes - General General: Alert and oriented X 3, No acute distress, Well developed/nourished - HEENT HEENT: PERRL, Ears normal, Moist mucous membranes, Other (3cm laceration inner R bottom lip near gumline) - Neck Neck: Supple, no meningeal sign, No bony TTP, C-Spine cleared by NEXUS criteria - Cardiac Cardiac: RRR, No murmur, Strong equal pulses - Respiratory Respiratory: No respiratory distress, Clear bilaterally - Abdomen Abdomen: Soft, Non tender, Non distended - Back Back: No CVA TTP, No spinal TTP - Derm Derm: Normal color, No rash - Extremities Extremities: No deformity, No tenderness to palpate, Normal ROM s pain, No edema - Neuro Neuro: Alert and oriented X 3, 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, No motor deficit, No sensory deficit, Normal speech - Psych Psych: Normal mood, Normal affect PD ED PE EXPANDED - HEENT HEENT Visual: 1 - laceration (3cm horizontal laceration) Results - Vitals Vitals: Vital Signs - 24 hr 09/24/21 09/24/21 09/24/21 21:25 21:29 22:02 Temperature 36.6 C Heart Rate 76 69 72 Respiratory 20 18 Rate Blood Pressure 97/64 89/60 L 75/44 L O2 Saturation 99 97 09/24/21 09/24/21 22:26 22:29 Temperature Heart Rate 83 76 Respiratory 16 16 Rate Blood Pressure 108/54 L 123/74 O2 Saturation 99 97 Oxygen O2 Source Room air Procedures - Laceration (location) Lip Wound type: Linear, Clean Neurovascular status: Sensory intact, Motor intact, Vascular intact Anesthesia: Lidocaine 1%, Other (patient declined injection/needle) Wound preparation: Irrigated copiously NS Skin layer closure: Size #-0 - enter number (4), Sutures - enter # (3), Other (Vicryl) Other: Patient tolerated well, No complications, Tetanus UTD PD MEDICAL DECISION MAKING - ED course ED course: Lip laceration. Patient is adamantly declining any additional work-up for her syncope, she states that this is normal for her after she has phlebotomy for her hemochromatosis. Daughter at bedside supports patient's request. Lip laceration was copiously irrigated with normal saline, loosely approximated with Vicryl sutures. Patient counseled to rinse mouth with salt water gargles if she eats or drinks anything. Infection precautions discussed with patient and her daughter at bedside. Discharged home in stable condition. Departure - Departure Disposition: 01 Home, Self Care Clinical Impression: Lip laceration Condition: Stable Instructions: ED Laceration Mouth Prescriptions: Amox/Clav 875/125 [Augmentin] 1 each PO Q12H #20 tablet Lidocaine Viscous 2% [Xylocaine Viscous 2%] 5 ml MM Q4H #100 ml Comments: ANY TIME YOU EAT OR DRINK RINSE YOUR MOUTH WITH WARM SALT WATER. Discharge Date/Time: 09/24/21 22:39
[2021-09-24] MEDS ORDERED: SODIUM CHLORIDE 0.9% 1,000 ML IV ONE (22:02)
[2021-09-24 22:35] VITALS: BP 123/74
== END 2021-09-24 22:39 | disposition home or self-care (01) ==
LOC: ED 21:12
DX: S01.511A Laceration without foreign body of lip, initial encounter (principal); W19.XXXA Unspecified fall, initial encounter; I10 Essential (primary) hypertension; E11.9 Type 2 diabetes mellitus without complications; Z79.84 Long term (current) use of oral hypoglycemic drugs; Z87.891 Personal history of nicotine dependence
CPT/HCPCS: 12013; 99283

== ENCOUNTER 2021-11-18 16:09 | Outpatient (CLI) | payer BC ==
--- NOTE | 2021-11-19 14:49 | XRAY Report ---
PROCEDURE: Spine Scoliosis Study 2-3V INDICATIONS: SCOLIOSIS TECHNIQUE: Frontal and lateral standing views of the spine acquired. COMPARISON: None. FINDINGS: There is leftward scoliotic curvature within the lumbar spine measuring approximately 32 degrees betw een L1 and L4. Bone morphology: No developmental anomalies of the ribs or spine. 12 pairs of ribs a re noted. 5 nonrib-bearing lumbar vertebrae are present. No suspicious bony lesions. IMPRESSION: Leftward scoliotic curvature as above. Reviewed by: Frances Galloway MD on 11/19/2021 2:48 PM PDT Approved by: Frances Galloway MD on 11/19/2021 2:48 PM PDT Station ID: [id number]
== END 2021-11-18 16:10 | disposition home or self-care (01) ==
LOC: DI.N 16:09
DX: M41.9 Scoliosis, unspecified (principal)

== ENCOUNTER 2021-12-24 13:55 | Outpatient (CLI) | payer BC | END 2021-12-24 13:56 | disposition home or self-care (01) | LOC: LAB 13:55 | PROVIDERS: ATTEND Neurological Surgery | DX: Z01.818 Encounter for other preprocedural examination (principal); Z20.822 Contact with and (suspected) exposure to COVID-19 ==

== ENCOUNTER 2022-08-23 08:04 | Outpatient (CLI) | payer BC ==
[2022-08-25 12:10] LABS: A/G RATIO 0.9 (0.7-1.7); ALBUMIN 3.4 g/dL (2.9-4.4); ALPHA-1-GLOBULIN 0.3 g/dL (0.0-0.4); ALPHA-2-GLOBULIN 0.9 g/dL (0.4-1.0); BETA GLOBULIN 1.4 g/dL (0.7-1.3); GAMMA GLOBULIN 1.4 g/dL (0.4-1.8); PROTEIN TOTAL 7.4 g/dL (6.0-8.5)
== END 2022-08-23 08:05 | disposition home or self-care (01) ==
LOC: LAB 08:04
DX: G62.9 Polyneuropathy, unspecified (principal)
CPT/HCPCS: 36415; 84155; 84165

== ENCOUNTER 2022-08-25 13:23 | Outpatient (CLI) | payer BC ==
--- NOTE | 2022-08-26 09:35 | Mammography Report ---
BILATERAL DIGITAL SCREENING MAMMOGRAM 3D/2D WITH AUGMENTATION: 08/25/2022 CLINICAL: Routine screening. Comparison is made to exams dated: 04/09/2020 mammogram, 12/21/2018 mammogram, 07/19/2016 mammogram, a nd 10/22/2013 mammogram - [facility]. There are scattered areas of fibroglandular density in both breasts (category b / 25%-50% glandular t issue). Bilateral breast implants are present. No significant masses, calcifications, or other findings are seen in either breast. There has been no significant interval change. IMPRESSION: BENIGN There is no mammographic evidence of malignancy. A 1 year screening mammogram is recommended. Based on the Tyrer Cuzick model (a risk assessment model) the patients lifetime risk is 8.9% and her 10 year risk is 3.6%. According to the ACR, ACS, and NCCN guidelines, an annual breast MRI exam trini g with mammogram is recommended if the patients lifetime risk is 20% or greater. This exam was interpreted at Station ID: [id number]. NOTE: For mammograms, a report in lay terms will be sent to the patient. Approximately 15% of breast malignancies will not be visualized mammographically. In the management of a palpable breast mass, a negative mammogram must not discourage biopsy of a clinically suspicious lesion. Electronically Signed By: Feliciano krishna/sonido:08/25/2022 15:31:22 letter sent: No_Letter ACR BI-RADS Category 2: Benign Finding(s) 3342F PARENCHYMAL PATTERN: (A) - The breast(s) demonstrate(s) scattered fibroglandular densities. BI-RADS CATEGORY: (2) - 2 Mammogram [id number] 1 year screening LATERALITY: (B)
== END 2022-08-25 13:24 | disposition home or self-care (01) ==
LOC: DI 13:23
DX: Z12.31 Encounter for screening mammogram for malignant neoplasm of breast (principal)

== ENCOUNTER 2023-02-12 22:17 | Emergency (ER) | payer BC ==
--- NOTE | 2023-02-12 22:31 | ED Physician Documentation ---
PD HPI CHEST PAIN - Stated complaint Stated Complaint: CHEST PX - Chief complaint Chief Complaint: Cardiac - History obtained from History obtained from: Patient - Additional information Additional information: HPI from patient. Patient complains of left parasternal chest pain since this morning when she woke from sleep. The pain has been constant all day. There are no ameliorating or exacerbating factors. She denies history of similar symptoms. Patient says she took a COVID test yesterday and the result was negative. She also has noted low blood pressure readings at home today with systolic blood pressures in the 80s to 90s range, although she is normotensive in the ED at this time. Denies shortness of breath, denies nausea/vomiting, denies leg swelling. Review of Systems Constitutional: denies: Fever Cardiac: reports: Chest pain / pressure. 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: Other Cardiovascular: Vascular surgery - Present Medications Home Medications: Ambulatory Orders Medication Instructions Recorded Confirmed Omeprazole 20 mg PO BID 05/14/17 08/24/22 Atorvastatin [Lipitor] 20 mg ORAL HS 07/05/20 08/24/22 Losartan [Cozaar] 50 mg PO BID 07/05/20 08/24/22 Propranolol [Inderal] 40 mg PO BID 07/05/20 08/24/22 metFORMIN [Glucophage] 500 mg PO DAILY 07/05/20 08/24/22 Aspirin [Vazalore] 81 mg PO DAILY 08/11/21 08/24/22 Gabapentin [Gralise] 300 mg PO UD 08/11/21 08/24/22 - Allergies Allergies/Adverse Reactions: Allergies Allergy/AdvReac Type Severity Reaction Status Date / Time meperidine [From Demerol] Allergy Hives Verified 02/12/23 22:22 - Social History Does the pt smoke?: No Smoking Status: Never smoker Does the pt drink ETOH?: Yes Does the pt have substance abuse?: No - Immunizations Immunizations are current?: Yes - POLST Patient has POLST: No PD ED PE NORMAL - Vitals Vital signs reviewed: Yes - General General: Alert and oriented X 3, No acute distress, Well developed/nourished - Cardiac Cardiac: RRR, No murmur, No gallop, No rub - Respiratory Respiratory: No respiratory distress, Clear bilaterally - Abdomen Abdomen: Soft, Non tender - Extremities Extremities: No edema Results - Vitals Vitals: Oxygen O2 Source Room air - EKG (time done) No standard instances EKG releavant findings:: EKG personally interpreted by author of this note. Relevant findings are: Rate: Rate (enter#) (71) Rhythm: NSR [place]: Normal Intervals: Normal [place] QRS: Normal Ischemia: Normal ST segments, Q waves (V1-V3) Compare to prior EKG: Unchanged from prior EKG (Q waves noted on previous (12/29/17)) - Labs Labs: Laboratory Tests 02/12/23 02/12/23 22:49 22:49 WBC 9.6 RBC 3.78 L Hgb 11.5 L Hct 35.3 L MCV 93.4 MCH 30.4 MCHC 32.6 RDW 15.0 Plt Count 228 MPV 10.8 Neut # (Auto) 4.6 Lymph # (Auto) 3.7 H [place] # (Auto) 1.0 Eos # (Auto) 0.2 Baso # (Auto) 0.0 Absolute Nucleated RBC 0.00 Nucleated RBC % 0.0 Sodium 130 L Potassium 3.7 Chloride 95 L Carbon Dioxide 22 Anion Gap 13.0 BUN 9 Creatinine 0.5 L Estimated GFR (MDRD) 126 Glucose 77 Calcium 8.7 Total Bilirubin 0.4 AST 24 ALT 18 Alkaline Phosphatase 56 Troponin I High Sens 3.5 Total Protein 6.7 Albumin 3.9 Globulin 2.8 Albumin/Globulin Ratio 1.4 Lipase 33 - Rads (name of study) chest xray Relevant Findings:: Prelim report reviewed, See rad report PD Medical Decision Making - ED course Complexity details: reviewed results, re-evaluated patient, considered differential, d/w patient ED course: No concerning or diagnostic findings on EKG, chest x-ray, blood test including high-sensitivity troponin. Incidental finding noted of mild hyponatremia (130). I did have the opportunity to discuss test results with the patient with the exception of the chest x-ray, which was still pending when I last spoke with this patient. At that time, the patient was requesting discharge but was amenable to my reiteration of the importance of getting a chest x-ray in the setting of chest pain. Chest x-ray was undertaken and results are unremarkable; however, patient left before I was able to discuss results, discharge instructions, and return precautions with her. Departure - Departure Disposition: 01 Home, Self Care Clinical Impression: Chest pain Condition: Good Instructions: ED Chest Pain Atypical Unkn Cause Forms: PCP List Discharge Date/Time: 02/13/23 00:58
[2023-02-12 23:14] LABS: BASOPHILS % (AUTO) 0.4 %; EOSINOPHILS # (AUTO) 0.2 10^3/uL (0.0-0.7); EOSINOPHILS % (AUTO) 1.9 %; HCT - HEMATOCRIT 35.3 % (37.0-47.0); HGB - HEMOGLOBIN 11.5 g/dL (12.0-16.0); LYMPHOCYTES # (AUTO) 3.7 10^3/uL (1.5-3.5); LYMPHOCYTES % (AUTO) 38.8 %; MEAN CORPUSCULAR HEMOGLOBIN 30.4 pg (27.0-31.0); MEAN CORPUSCULAR HGB CONC 32.6 g/dL (32.0-36.0); MEAN CORPUSCULAR VOLUME 93.4 fL (81.0-99.0); MEAN PLATELET VOLUME 10.8 fL (7.9-10.8); MONOCYTES % (AUTO) 10.3 %; NEUTROPHILS # (AUTO) 4.6 10^3/uL (1.5-6.6); NEUTROPHILS % (AUTO) 48.3 %; PLT - PLATELET COUNT 228 10^3/uL (130-450); RED BLOOD COUNT 3.78 10^6/uL (4.20-5.40); WHITE BLOOD COUNT 9.6 x10^3/uL (4.8-10.8)
[2023-02-12 23:35] LABS: TROPONIN I HIGH SENSITIVITY 3.5 ng/L (2.3-14.8)
[2023-02-12 23:52] LABS: ALBUMIN 3.9 g/dL (3.2-5.5); ALBUMIN/GLOBULIN RATIO 1.4 (1.0-2.2); BILIRUBIN,TOTAL 0.4 mg/dL (0.2-1.0); CALCIUM 8.7 mg/dL (8.5-10.3); CREATININE 0.5 mg/dL (0.6-1.3); POTASSIUM 3.7 mmol/L (3.5-4.5); TOTAL PROTEIN 6.7 g/dL (6.4-8.9)
[2023-02-13 00:31] VITALS: BP 98/56; O2SAT 95
--- NOTE | 2023-02-13 00:36 | XRAY Report ---
PROCEDURE: Chest 1 View X-Ray INDICATIONS: Chest pain TECHNIQUE: One view of the chest was acquired. COMPARISON: None. FINDINGS: Surgical changes and devices: Cervical spine fixation hardware is partially seen. Mammoplasty implan ts are incidentally noted. Lungs and pleura: No pleural effusions or pneumothorax. Lungs are clear. Mediastinum: Mediastinal contours appear normal. Heart size is normal. Bones and chest wall: No suspicious bony lesions. Overlying soft tissues appear unremarkable. IMPRESSION: No acute cardiopulmonary process. Reviewed by: Jonathan Freeman MD on 02/12/2023 11:35 PM [facility] Approved by: Jonathan Freeman MD on 02/12/2023 11:35 PM [facility] Station ID: [id number]
== END 2023-02-13 00:58 | disposition home or self-care (01) ==
LOC: ED 22:17
DX: R07.89 Other chest pain (principal); I10 Essential (primary) hypertension; E78.00 Pure hypercholesterolemia, unspecified; E11.9 Type 2 diabetes mellitus without complications; Z79.899 Other long term (current) drug therapy; Z79.82 Long term (current) use of aspirin; Z79.84 Long term (current) use of oral hypoglycemic drugs
CPT/HCPCS: 36415; 80053; 83690; 84484; 85025; 93005; 99283; 99284

== ENCOUNTER 2023-08-05 18:18 | Emergency (ER) | payer BC ==
[2023-08-05] MEDS: ADENOSINE 6 MG/2 ML VIAL IVP STA (18:38)
--- NOTE | 2023-08-05 18:47 | XRAY Report ---
PROCEDURE: Chest 1V INDICATIONS: Chest Pain TECHNIQUE: One view of the chest was acquired. COMPARISON: 02/12/2023 FINDINGS: Surgical changes and devices: Mammoplasty implants are incidentally noted. Lungs and pleura: No pleural effusions or pneumothorax. Lungs are clear. Mediastinum: Mediastinal contours appear normal. Heart size is normal. Bones and chest wall: No suspicious bony lesions. Age-appropriate degenerative changes are seen. Overlying soft tissues appear unremarkable. IMPRESSION: Portable chest within normal limits for age. Reviewed by: Jonathan Freeman MD on 08/05/2023 5:46 PM [facility] Approved by: Jonathan Freeman MD on 08/05/2023 5:46 PM [facility] Station ID: [id number]
[2023-08-05 18:48] LABS: BASOPHILS % (AUTO) 0.4 %; HCT - HEMATOCRIT 41.5 % (37.0-47.0); HGB - HEMOGLOBIN 13.5 g/dL (12.0-16.0); LYMPHOCYTES % (AUTO) 13.3 %; MEAN CORPUSCULAR HEMOGLOBIN 33.1 pg (27.0-31.0); MEAN CORPUSCULAR HGB CONC 32.5 g/dL (32.0-36.0); MEAN CORPUSCULAR VOLUME 101.7 fL (81.0-99.0); MEAN PLATELET VOLUME 10.4 fL (7.9-10.8); MONOCYTES % (AUTO) 18.4 %; NEUTROPHILS % (AUTO) 66.6 %; PLT - PLATELET COUNT 248 10^3/uL (130-450); RED BLOOD COUNT 4.08 10^6/uL (4.20-5.40); RED CELL DISTRIBUTION WIDTH 12.2 % (12.0-15.0); WHITE BLOOD COUNT 11.6 x10^3/uL (4.8-10.8)
--- NOTE | 2023-08-05 18:48 | ED Physician Documentation ---
History of Present Illness - Stated complaint Stated Complaint: SVT 225 - Chief complaint Chief Complaint: Cardiac - History obtained from History obtained from: Patient - History of Present Illness Timing: Today Pain level max: 0 Pain level now: 0 - Additonal information Additional information: 63-year-old female presents to the emergency department with her heart racing. Feels similar to prior episodes of SVT. No chest pain. Feels mildly short of breath. Attempted vagal maneuvers at home without relief. She states that she has had adenosine in the past and has had to be cardioverted in the past for SVT. 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 : None HEENT: None Psych: Anxiety Musculoskeletal: Chronic back pain Derm: None - Past Surgical History Past Surgical History: Yes /CARDIOVASCULAR TECH: Other Cardiovascular: Vascular surgery - Present Medications Home Medications: Ambulatory Orders Medication Instructions Recorded Confirmed Omeprazole 20 mg PO BID 05/14/17 02/22/23 Atorvastatin [Lipitor] 20 mg ORAL HS 07/05/20 02/22/23 Losartan [Cozaar] 50 mg PO BID 07/05/20 02/22/23 Propranolol [Inderal] 40 mg PO BID 07/05/20 02/22/23 metFORMIN [Glucophage] 500 mg PO DAILY 07/05/20 02/22/23 Aspirin [Vazalore] 81 mg PO DAILY 08/11/21 02/22/23 Gabapentin [Gralise] 300 mg PO UD 08/11/21 02/22/23 - Allergies Allergies/Adverse Reactions: Allergies Allergy/AdvReac Type Severity Reaction Status Date / Time meperidine [From Demerol] Allergy Hives Verified 08/05/23 18:38 - Social History Does the pt smoke?: No Smoking Status: Never smoker Does the pt drink ETOH?: Yes Does the pt have substance abuse?: No - Immunizations Immunizations are current?: Yes - POLST Patient has POLST: No PD ED PE NORMAL - Vitals Vital signs reviewed: Yes - General General: Alert and oriented X 3, No acute distress - HEENT HEENT: Moist mucous membranes - Neck Neck: Supple, no meningeal sign - Cardiac Cardiac: Other (Tachycardic) - Respiratory Respiratory: No respiratory distress, Clear bilaterally - Abdomen Abdomen: Soft, Non tender, Non distended - Derm Derm: Warm and dry - Extremities Extremities: No edema, No calf tenderness / cord - Neuro Neuro: Alert and oriented X 3 Results - Vitals Vitals: Vital Signs - 24 hr 08/05/23 08/05/23 08/05/23 18:24 18:58 19:28 Temperature 37.1 C Heart Rate 227 H 115 H 113 H Respiratory 18 23 22 Rate Blood Pressure 115/78 156/101 H 167/113 H O2 Saturation 100 100 99 08/05/23 19:58 Temperature 37.1 C Heart Rate 113 H Respiratory 22 Rate Blood Pressure 167/113 H O2 Saturation 99 Oxygen O2 Source Room air - EKG (time done) 1833 EKG releavant findings:: EKG personally interpreted by author of this note. Relevant findings are: Rate: Rate (enter#) (218) Rhythm: SVT [place]: Normal Intervals: Normal [place] QRS: Normal Ischemia: Normal ST segments 1916 EKG releavant findings:: EKG personally interpreted by author of this note. Relevant findings are: Rate: Rate (enter#) (113) Rhythm: Sinus tachycardia [place]: Normal Intervals: Normal [place] QRS: Normal Ischemia: Normal ST segments - Labs Labs: Laboratory Tests 08/05/23 08/05/23 18:34 18:34 WBC 11.6 H RBC 4.08 L Hgb 13.5 Hct 41.5 MCV 101.7 H MCH 33.1 H MCHC 32.5 RDW 12.2 Plt Count 248 MPV 10.4 Neut # (Auto) Not Reportable Lymph # (Auto) Not Reportable [place] # (Auto) Not Reportable Eos # (Auto) Not Reportable Baso # (Auto) Not Reportable Absolute Nucleated RBC Not Reportable Total Counted 100 Band Neuts % (Manual) 6 Reactive Lymphs % (Man) 3 Abnorm Lymph % (Manual) 0 Nucleated RBC % Not Reportable Neutrophils # (Manual) 9.0 H Lymphocytes # (Manual) 1.6 Monocytes # (Manual) 0.8 Eosinophils # (Manual) 0.1 Basophils # (Manual) 0.0 Differential Comment MANUAL DIFFERENTIAL Platelet Estimate NORMAL (130-450,000) Platelet Morphology NORMAL APPEARANCE RBC Morph Micro Appear NORMAL APPEARANCE Sodium 137 Potassium 3.3 L Chloride 99 L Carbon Dioxide 28 Anion Gap 10.0 BUN 9 Creatinine 0.7 Estimated GFR (MDRD) 85 L Glucose 128 H Calcium 9.7 Total Bilirubin 0.5 AST 25 ALT 21 Alkaline Phosphatase 73 Total Protein 6.7 Albumin 4.0 Globulin 2.7 Albumin/Globulin Ratio 1.5 Lipase 25 - Rads (name of study) cxr Relevant Findings:: Final report received, See rad report PD Medical Decision Making - ED course Complexity details: reviewed results, re-evaluated patient, considered differential, d/w patient ED course: 63-year-old female presents to the emergency department with SVT. She received 6 mg of adenosine IV and the SVT resolved. Patient asymptomatic after this. Monitored in the emergency department with no recurrence of SVT. Will have her follow-up with her doctor for further care. Patient counseled regarding signs and symptoms for which I believe and urgent re-evaluation would be necessary. Patient with good understanding of and agreement to plan and is comfortable going home at this time This document was made in part using voice recognition software. While efforts are made to proofread this document, sound alike and grammatical errors may occur. Departure - Departure Disposition: 01 Home, Self Care Clinical Impression: SVT (supraventricular tachycardia) Condition: Good Instructions: ED Tachycardia Pat PSVT Follow-Up: Jose Ni MD [Primary Care Provider] - Comments: Your in SVT tonight and were treated with adenosine. You have converted back into sinus rhythm. Please return if you worsen. Forms: PCP List Discharge Date/Time: 08/05/23 20:01
[2023-08-05 18:50] LABS: ABNORMAL LYMPHS % (MANUAL) 0 %
[2023-08-05] MEDS: SODIUM CHLORIDE 0.9% 1,000 ML IV STA (18:55)
[2023-08-05 19:00] LABS: ALBUMIN/GLOBULIN RATIO 1.5 (1.0-2.2); BILIRUBIN,TOTAL 0.5 mg/dL (0.2-1.0); CALCIUM 9.7 mg/dL (8.5-10.3); CREATININE 0.7 mg/dL (0.6-1.3); POTASSIUM 3.3 mmol/L (3.5-4.5); TOTAL PROTEIN 6.7 g/dL (6.4-8.9)
[2023-08-05 19:43] LABS: BAND NEUTROPHILS % (MANUAL) 6 %; DIFFERENTIAL COMMENT MANUAL DIFFERENTIAL; EOSINOPHILS # (MANUAL) 0.1 10^3/uL (0-0.7); LYMPHOCYTES # (MANUAL) 1.6 10^3/uL (1.5-3.5); LYMPHOCYTES % (MANUAL) 11 %; MONOCYTES # (MANUAL) 0.8 10^3/uL (0.0-1.0); PLATELET ESTIMATE, MANUAL NORMAL (130-450,000) (NORMAL); PLATELET MORPHOLOGY NORMAL APPEARANCE (NORMAL); RBC MORPHOLOGY (MULTIPLE) NORMAL APPEARANCE (NORMAL); REACTIVE LYMPHS % (MANUAL) 3 %
[2023-08-05 20:03] VITALS: BP 167/113; O2SAT 99
== END 2023-08-05 20:01 | disposition home or self-care (01) ==
LOC: ED 18:18
DX: I47.10 Supraventricular tachycardia, unspecified (principal)
CPT/HCPCS: 36415; 71045; 80053; 83690; 85025; 93005; 96361; 96374; 99284; J0153; 84484

== ENCOUNTER 2023-08-09 05:12 | Emergency (ER) | payer BC ==
--- NOTE | 2023-08-09 05:21 | ED Physician Documentation ---
History of Present Illness - Stated complaint Stated Complaint: RACING HEART RATE - Chief complaint Chief Complaint: Cardiac - History obtained from History obtained from: Patient - Additonal information Additional information: HPI from patient. 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 She recognized the sensation as the same symptoms associated with her multiple previous episodes of SVT. It is associated with pressure/tightness of neck and mild headache but denies chest pain. Tried valsalva maneuvers without success tonight. On previous visits she has converted to NSR with adenosine but other times has needed electrocardioversion due to ineffectiveness of adenosine. T+R from this ED 4 days ago for same. 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 : None HEENT: None Psych: Anxiety Musculoskeletal: Chronic back pain Derm: None - Past Surgical History Past Surgical History: Yes /VOCATIONAL EXAMINER: Other Cardiovascular: Vascular surgery - Present Medications Home Medications: Ambulatory Orders Medication Instructions Recorded Confirmed Omeprazole 20 mg PO BID 05/14/17 02/22/23 Atorvastatin [Lipitor] 20 mg ORAL HS 07/05/20 02/22/23 Losartan [Cozaar] 50 mg PO BID 07/05/20 02/22/23 Propranolol [Inderal] 40 mg PO BID 07/05/20 02/22/23 metFORMIN [Glucophage] 500 mg PO DAILY 07/05/20 02/22/23 Aspirin [Vazalore] 81 mg PO DAILY 08/11/21 02/22/23 Gabapentin [Gralise] 300 mg PO UD 08/11/21 02/22/23 - Allergies Allergies/Adverse Reactions: Allergies Allergy/AdvReac Type Severity Reaction Status Date / Time meperidine [From Demerol] Allergy Hives Verified 08/09/23 05:17 - Social History Does the pt smoke?: No Smoking Status: Never smoker Does the pt drink ETOH?: Yes Does the pt have substance abuse?: No - Immunizations Immunizations are current?: Yes - POLST Patient has POLST: No PD ED PE NORMAL - Vitals Vital signs reviewed: Yes - General General: Alert and oriented X 3, No acute distress, Well developed/nourished - Cardiac Cardiac: No murmur - Respiratory Respiratory: No respiratory distress, Clear bilaterally PD ED PE EXPANDED - Cardiac Cardiac: Tachy, Regular Rhythm Results - Vitals Vitals: Vital Signs - 24 hr 08/09/23 08/09/23 08/09/23 05:17 05:30 06:00 Heart Rate 204 H 95 103 H Respiratory 16 24 27 H Rate Blood Pressure 110/98 H 146/94 H 132/96 H O2 Saturation 97 97 97 Oxygen O2 Source Room air - EKG (time done) #1 EKG releavant findings:: EKG personally interpreted by author of this note. Relevant findings are: Rate: Rate (enter#) (204) Rhythm: Sinus tachycardia [place]: Normal Ischemia: Q waves (V1, V2) #2 EKG releavant findings:: EKG personally interpreted by author of this note. Relevant findings are: Rate: Rate (enter#) (101) Rhythm: Sinus tachycardia [place]: Normal Intervals: Normal [place] QRS: Normal Ischemia: Normal ST segments, Q waves (V1, V2 (noted on previous EKG from January 2023)) - Labs Labs: Laboratory Tests 08/09/23 08/09/23 05:30 05:30 WBC 11.1 H RBC 4.00 L Hgb 13.3 Hct 39.5 MCV 98.8 MCH 33.3 H MCHC 33.7 RDW 11.7 L Plt Count 350 MPV 10.2 Neut # (Auto) 8.6 H Lymph # (Auto) 1.9 [place] # (Auto) 0.3 Eos # (Auto) 0.0 Baso # (Auto) 0.0 Absolute Nucleated RBC 0.00 Nucleated RBC % 0.0 Sodium 135 Potassium 3.8 Chloride 98 L Carbon Dioxide 21 Anion Gap 16.0 H BUN 13 Creatinine 0.5 L Estimated GFR (MDRD) 125 Glucose 141 H Calcium 9.3 PD Medical Decision Making - ED course Complexity details: reviewed results, re-evaluated patient, considered differential, d/w patient ED course: 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 NAD. As nurses were placing IV and preparing to give IVP adenosine, I tried left carotid massage. She did not convert during the carotid massage but within 5-10 seconds after I abandoned the attempt, it was noted on monitor that she was now 100-110s bpm, ST. Adenosine was not given. Basic blood tests are unremarkable (CBC, BMP). Return precautions reviewed. I advised her to meet with her warp knitting machine operator to review options such as ablation; she says she was advised by warp knitting machine operator against the procedure, but she also says she has had several more episodes since their last meeting and the episodes have been increasing in frequency. Departure - Departure Disposition: 01 Home, Self Care Clinical Impression: SVT (supraventricular tachycardia) Condition: Good Instructions: ED Tachycardia Pat PSVT Comments: There were no concerning findings on tonight's basic blood work. As we discussed, I recommend that you contact your warp knitting machine operator to arrange for next available appointment so as to revisit options for treatment of your recurrent SVT. Discharge Date/Time: 08/09/23 06:30
[2023-08-09 05:24] VITALS: O2SAT 97
[2023-08-09] MEDS ORDERED: ADENOSINE 6 MG/2 ML VIAL IVP ONE (05:26)
[2023-08-09 05:39] LABS: BASOPHILS % (AUTO) 0.3 %; EOSINOPHILS % (AUTO) 0.1 %; HCT - HEMATOCRIT 39.5 % (37.0-47.0); HGB - HEMOGLOBIN 13.3 g/dL (12.0-16.0); LYMPHOCYTES # (AUTO) 1.9 10^3/uL (1.5-3.5); LYMPHOCYTES % (AUTO) 17.4 %; MEAN CORPUSCULAR HEMOGLOBIN 33.3 pg (27.0-31.0); MEAN CORPUSCULAR HGB CONC 33.7 g/dL (32.0-36.0); MEAN CORPUSCULAR VOLUME 98.8 fL (81.0-99.0); MEAN PLATELET VOLUME 10.2 fL (7.9-10.8); MONOCYTES # (AUTO) 0.3 10^3/uL (0.0-1.0); MONOCYTES % (AUTO) 2.9 %; NEUTROPHILS # (AUTO) 8.6 10^3/uL (1.5-6.6); NEUTROPHILS % (AUTO) 77.5 %; PLT - PLATELET COUNT 350 10^3/uL (130-450); RED CELL DISTRIBUTION WIDTH 11.7 % (12.0-15.0); WHITE BLOOD COUNT 11.1 x10^3/uL (4.8-10.8)
[2023-08-09 05:59] LABS: CALCIUM 9.3 mg/dL (8.5-10.3); CREATININE 0.5 mg/dL (0.6-1.3); POTASSIUM 3.8 mmol/L (3.5-4.5)
[2023-08-09] MEDS: ADENOSINE 6 MG/2 ML VIAL IVP STA (06:04)
[2023-08-09 06:23] VITALS: BP 132/96
== END 2023-08-09 06:30 | disposition home or self-care (01) ==
LOC: ED 05:12
DX: I47.10 Supraventricular tachycardia, unspecified (principal); I10 Essential (primary) hypertension; E78.00 Pure hypercholesterolemia, unspecified; E11.9 Type 2 diabetes mellitus without complications; Z79.899 Other long term (current) drug therapy; Z79.84 Long term (current) use of oral hypoglycemic drugs; Z79.82 Long term (current) use of aspirin
CPT/HCPCS: 36415; 80048; 84484; 85025; 93005; 99283; 99284

== ENCOUNTER 2023-08-23 12:48 | Outpatient (CLI) | payer BC ==
[2023-08-23 13:17] LABS: CHOL/HDL RATIO 2.1 (<4.4); CHOLESTEROL 147 mg/dL; HDL CHOLESTEROL 69 mg/dL; LDL CHOLESTEROL,CALCULATED 55 mg/dL; LDL/HDL RATIO 0.8 (<4.4); TRIGLYCERIDES 115 mg/dL (48-352); VLDL CHOLESTEROL 23 mg/dL
[2023-08-23 14:18] LABS: ESTIMATED AVERAGE GLUCOSE 123 mg/dL (70-100); HEMOGLOBIN A1c% 5.9 % (4.27-6.07)
[2023-08-23 15:49] LABS: ALBUMIN/GLOBULIN RATIO 1.2 (1.0-2.2); ALKALINE PHOSPHATASE 100 IU/L (42-121); ALT ALANINE AMINOTRANSFERASE 29 IU/L (10-60); AST ASPARTATE AMINOTRANSFERASE 35 IU/L (10-42); BILIRUBIN,TOTAL 0.7 mg/dL (0.2-1.0); BUN - BLOOD UREA NITROGEN 9 mg/dL (6-20); CALCIUM 9.7 mg/dL (8.5-10.3); CARBON DIOXIDE - CO2 26 mmol/L (21-32); CHLORIDE 98 mmol/L (101-111); CREATININE 0.6 mg/dL (0.6-1.3); GFR - MDRD 102 (>89); GLUCOSE 84 mg/dL (74-104); POTASSIUM 4.7 mmol/L (3.5-4.5); SODIUM 134 mmol/L (135-145); TOTAL PROTEIN 7.3 g/dL (6.4-8.9)
== END 2023-08-23 12:49 | disposition home or self-care (01) ==
LOC: LAB 12:48
PROVIDERS: ATTEND Student in an Organized Health Care Education/Training Program
DX: E55.9 Vitamin D deficiency, unspecified (principal); I10 Essential (primary) hypertension; Z13.6 Encounter for screening for cardiovascular disorders; R73.03 Prediabetes
CPT/HCPCS: 36415; 80053; 80061; 82306; 83036; 83721

== ENCOUNTER 2023-10-02 10:29 | Outpatient (CLI) | payer BC ==
--- NOTE | 2023-10-02 21:14 | XRAY Report ---
PROCEDURE: Hip w/Pelvis 2-3V LT INDICATIONS: TROCHANTERIC BURSITIS, LEFT HIP TECHNIQUE: 2 views of the hip were acquired. COMPARISON: None. FINDINGS: Bones: No fractures or dislocations. Mild to moderate left hip joint osteoarthritic changes are seen . No evidence of avascular necrosis of femoral head. No suspicious bony lesions. Soft tissues: No suspicious soft tissue calcifications or masses. IMPRESSION: No acute left hip fracture or dislocation. Mild to moderate left hip joint osteoarthritis. No evidenc e of avascular necrosis. No gross soft tissue abnormalities. Reviewed by: Scot Hall MD on 10/02/2023 9:13 PM PDT Approved by: Scot Hall MD on 10/02/2023 9:13 PM PDT Station ID: [id number]
== END 2023-10-02 10:30 | disposition home or self-care (01) ==
LOC: DI 10:29
PROVIDERS: ATTEND Internal Medicine
DX: M16.12 Unilateral primary osteoarthritis, left hip (principal)